=== PATIENT | female | born 1975 | race Caucasian/White ===

== ENCOUNTER 2016-10-27 20:36 | Inpatient (IN) | payer BC ==
[2016-10-27] MEDS ORDERED: HYDROmorphone 1 MG/ML Syringe IVPUSH ONE (21:34)
[2016-10-27] MEDS ORDERED: Ondansetron 4 MG/2 ML SDV IVPUSH ONE (21:34)
--- NOTE | 2016-10-27 21:41 | EDM.PDOC ---
ED HPI GI/ABDOMINAL - General Chief Complaint: Abdominal Pain Stated Complaint: ABDOMAINAL PAIN Time Seen by Provider: 10/27/16 21:36 Source of Information: Reports: Patient History Limitations: Reports: No limitations - History of Present Illness INITIAL COMMENTS - FREE TEXT/NARRATIVE: Patient presents for evaluation and treatment of epigastric abdominal pain. Patient reports that the pain began at 8 AM this morning. She states it has steadily worsened throughout the day. She states it feels like "contractions". States the pain is located in the epigastric area. reports associated symptoms of bloating, nausea, vomiting and diarrhea. She states that she has not vomited today but vomited yesterday and the day before. She states that she has had over 10 episodes of diarrhea today. She states that her last intake was a couple hours prior to her visit to the ER. States she tried to eat some rodriguez. She states she ate some rodriguez in hopes that it would help "clean her out ", as rodriguez does not sit well with her. she also had only about half Gatorade today. She states that she also tried Rolaids but did not find any symptom relief. She denies any fevers, cough, headaches or body aches. Patient says she's never had anything like this before. Past surgical history includes a tubal ligation and cholecystectomy. Location: other (epigastric) - Related Data Allergies/ADRs: Allergies Allergy/AdvReac Type Severity Reaction Status Date / Time Penicillins Allergy Tremors Verified 02/13/16 10:08 Home Meds: Home Meds atorvaSTATin [Lipitor] 40 mg PO DAILY 10/27/16 [History] Past Medical History - Past Health History Medical/Surgical History: Denies Medical/Surgical History Cardiovascular History: Reports: High cholesterol - Infectious Disease History Infectious Disease History: Reports: Chicken pox, Influenza - Past Surgical History GI Surgical History: Reports: Cholecystectomy Female Surgical History: Reports: Tubal ligation Social & Family History - Tobacco Use Smoking Status *Q: Never Smoker Second Hand Smoke Exposure: No - Caffeine Use Caffeine Use: Reports: Soda - Alcohol Use Days Per Week of Alcohol Use: 0 - Recreational Drug Use Recreational Drug Use: No - Living Situation & Occupation Occupation: employed ED ROS GENERAL - Review of Systems Review Of Systems: See Below Constitutional: Reports: other (denies body aches). Denies: fever Respiratory: Denies: Cough GI/Abdominal: Reports: Abdominal pain, Diarrhea, Distension, Nausea, Vomiting : Reports: no symptoms Neurological: Denies: Headache ED EXAM, GI/ABD - Physical Exam Exam: See Below Exam Limited By: No limitations General Appearance: alert, WD/WN, mild distress Respiratory/Chest: no respiratory distress, lungs clear, normal breath sounds Cardiovascular: normal peripheral pulses, regular rate, rhythm, no murmur GI/Abdominal: hypoactive bowel sounds, tenderness (epigastric), distention. No : rebound, Granados's sign Neurological: alert, oriented, normal cognition Psychiatric: normal affect, normal mood Skin Exam: Warm, Dry, Normal color Course - Vital Signs Last Recorded V/S: Last Vital Signs Temp 36.6 C 10/27/16 20:58 Pulse 97 10/27/16 20:58 Resp 20 10/27/16 20:58 BP 156/86 H 10/27/16 20:58 Pulse Ox 96 10/27/16 20:58 - Orders/Labs/Meds Orders: Active Orders 24 hr Category Date Time Status Patient Status [ADT] Routine ADT 10/27/16 23:42 Ordered Peripheral IV Care [RC] . DIRECTED Care 10/27/16 21:35 Active Nothing Per Oral Diet [DIET] Diet 10/27/16 Breakfast Ordered Abdomen Pelvis w Cont [CT] Stat Exams 10/27/16 21:34 Ordered CULTURE URINE [RM] Stat Lab 10/27/16 22:30 Ordered Sodium Chloride 0.9% [Normal Saline] 1,000 ml Med 10/27/16 23:24 Ordered IV ONETIME Sodium Chloride 0.9% [Saline Flush] Med 10/27/16 21:34 Active 10 ml FLUSH ASDIRECTED PRN NG [Nasogastric Orogastric Tube Insertion] [OM.PC] Oth 10/27/16 23:39 Ordered Routine Peripheral IV Insertion Adult [OM.PC] Routine Oth 10/27/16 21:34 Ordered Medication Orders Sodium Chloride (Normal Saline) 1,000 mls @ 999 mls/hr IV ONETIME ONE Stop: 10/28/16 00:24 Last Admin: 10/27/16 23:30 Dose: 999 mls/hr Sodium Chloride (Saline Flush) 10 ml FLUSH ASDIRECTED PRN PRN Reason: Keep Vein Open Last Admin: 10/27/16 22:55 Dose: 10 ml Admin: 10/27/16 21:49 Dose: 10 ml Labs: Laboratory Tests 10/27/16 10/27/16 10/27/16 Range/Units 21:37 21:37 21:37 WBC 8.30 (3.98-10.04) K/mm3 RBC 4.37 (3.98-5.22) M/mm3 Hgb 13.2 (11.2-15.7) gm/L Hct 39.0 (34.1-44.9) % MCV 89.2 (79.4-94.8) fl MCH 30.2 (25.6-32.2) pg MCHC 33.8 (32.2-35.5) g/dl RDW Std Deviation 39.9 (36.4-46.3) fL Plt Count 269 (182-369) K/mm3 MPV 11.0 (9.4-12.3) fl Neutrophils % (Manual) 70 H (40-60) % Band Neutrophils % 12 H (0-10) % Lymphocytes % (Manual) 14 L (20-40) % Atypical Lymphs % 0 % Monocytes % (Manual) 3 (2-10) % Eosinophils % (Manual) 1 (0.7-5.8) % Basophils % (Manual) 0 L (0.1-1.2) Platelet Estimate Adequate RBC Morph Comment Normal Sodium 142 (136-145) mEq/L Potassium 3.5 (3.5-5.1) mEq/L Chloride 104 (98-107) mEq/L Carbon Dioxide 26 (21-32) mEq/L Anion Gap 15.5 H (5-15) BUN 13 (7-18) mg/dL Creatinine 1.0 (0.55-1.02) mg/dL Est Cr Clr Drug Dosing 57.96 mL/min Estimated GFR (MDRD) > 60 (>60) mL/min BUN/Creatinine Ratio 13.0 L (14-18) Glucose 115 H (74-106) mg/dL Calcium 9.3 (8.5-10.1) mg/dL Total Bilirubin 1.6 H (0.2-1.0) mg/dL GGT 93 H (5-55) U/L AST 27 (15-37) U/L ALT 64 H (14-59) U/L Alkaline Phosphatase 93 (46-116) U/L C-Reactive Protein 1.9 H* (<1.0) mg/dL Total Protein 7.5 (6.4-8.2) g/dl Albumin 4.0 (3.4-5.0) g/dl Globulin 3.5 gm/dL Albumin/Globulin Ratio 1.1 (1-2) Lipase 103 (73-393) U/L Urine Color (Yellow) Urine Appearance (Clear) Urine pH (5.0-8.0) Ur Specific Salix (1.005-1.030) Urine Protein (Negative) Urine Glucose (UA) (Negative) Urine Ketones (Negative) Urine Occult Blood (Negative) Urine Nitrite (Negative) Urine Bilirubin (Negative) Urine Urobilinogen (0.2-1.0) Ur Leukocyte Esterase (Negative) Urine RBC (0-5) /hpf Urine WBC (0-5) /hpf Ur Epithelial Cells Ur Squamous Epith Cells (0-5) /hpf Urine Bacteria (FEW) /hpf Urine Mucus (FEW) /hpf Urine HCG, Qual (NEGATIVE) 10/27/16 10/27/16 Range/Units 21:45 21:45 WBC (3.98-10.04) K/mm3 RBC (3.98-5.22) M/mm3 Hgb (11.2-15.7) gm/L Hct (34.1-44.9) % MCV (79.4-94.8) fl MCH (25.6-32.2) pg MCHC (32.2-35.5) g/dl RDW Std Deviation (36.4-46.3) fL Plt Count (182-369) K/mm3 MPV (9.4-12.3) fl Neutrophils % (Manual) (40-60) % Band Neutrophils % (0-10) % Lymphocytes % (Manual) (20-40) % Atypical Lymphs % % Monocytes % (Manual) (2-10) % Eosinophils % (Manual) (0.7-5.8) % Basophils % (Manual) (0.1-1.2) Platelet Estimate RBC Morph Comment Sodium (136-145) mEq/L Potassium (3.5-5.1) mEq/L Chloride (98-107) mEq/L Carbon Dioxide (21-32) mEq/L Anion Gap (5-15) BUN (7-18) mg/dL Creatinine (0.55-1.02) mg/dL Est Cr Clr Drug Dosing mL/min Estimated GFR (MDRD) (>60) mL/min BUN/Creatinine Ratio (14-18) Glucose (74-106) mg/dL Calcium (8.5-10.1) mg/dL Total Bilirubin (0.2-1.0) mg/dL GGT (5-55) U/L AST (15-37) U/L ALT (14-59) U/L Alkaline Phosphatase (46-116) U/L C-Reactive Protein (<1.0) mg/dL Total Protein (6.4-8.2) g/dl Albumin (3.4-5.0) g/dl Globulin gm/dL Albumin/Globulin Ratio (1-2) Lipase (73-393) U/L Urine Color Yellow (Yellow) Urine Appearance Cloudy H (Clear) Urine pH 6.0 (5.0-8.0) Ur Specific Salix > or = 1.030 (1.005-1.030) Urine Protein 1+ H (Negative) Urine Glucose (UA) Negative (Negative) Urine Ketones Trace H (Negative) Urine Occult Blood 1+ H (Negative) Urine Nitrite Negative (Negative) Urine Bilirubin 1+ H (Negative) Urine Urobilinogen 1.0 (0.2-1.0) Ur Leukocyte Esterase Negative (Negative) Urine RBC 0-5 (0-5) /hpf Urine WBC 10-20 H (0-5) /hpf Ur Epithelial Cells Not Reportable Ur Squamous Epith Cells 30-40 H (0-5) /hpf Urine Bacteria Moderate H (FEW) /hpf Urine Mucus Many H (FEW) /hpf Urine HCG, Qual Negative (NEGATIVE) Meds: Medications Generic Name Dose Route Start Last Admin Trade Name Freq PRN Reason Stop Dose Admin Sodium Chloride 1,000 mls @ 999 mls/hr 10/27/16 23:24 10/27/16 23:30 Normal Saline IV 10/28/16 00:24 999 mls/hr ONETIME ONE Administration Sodium Chloride 10 ml 10/27/16 21:34 10/27/16 22:55 Saline Flush FLUSH 10 ml ASDIRECTED PRN Administration Keep Vein Open Discontinued Medications Generic Name Dose Route Start Last Admin Trade Name Freq PRN Reason Stop Dose Admin Diatrizoate Meglum/Diatrizoate Sod 120 ml 10/27/16 22:44 10/27/16 22:55 Gastrografin 37% PO 10/27/16 22:45 90 ml ONETIME ONE Administration Hydromorphone HCl 1 mg 10/27/16 21:34 10/27/16 21:49 Dilaudid IVPUSH 10/27/16 21:35 1 mg ONETIME ONE Administration Hydromorphone HCl 0.5 mg 10/27/16 23:32 10/27/16 23:41 Dilaudid IVPUSH 10/27/16 23:33 0.5 mg ONETIME ONE Administration Iopamidol 150 ml 10/27/16 22:44 10/27/16 22:55 Isovue-300 (61%) IVPUSH 10/27/16 22:45 125 ml ONETIME ONE Administration Ondansetron HCl 4 mg 10/27/16 21:34 10/27/16 21:47 Zofran IVPUSH 10/27/16 21:35 4 mg ONETIME ONE Administration - Radiology Interpretation Free Text/Narrative:: CT of the abdomen and pelvis with contrast impression per Vrad: Ileus or early evidence of small bowel obstruction possibly from adhesions in the mid ileal level. CT Results Date: 10/27/16 - Re-Assessments/Exams Free Text/Narrative Re-Assessment/Exam: 10/27/16 23:56 Patient reports pain is returning ordered 0.5mg IV dilaudid. Labs returned. WBC is 8.30, hgb is 13.2 and plts are 269 Sodium is 142, potassium is 3.5 and chloride is 104. Anion gap is 15.5. Glucose is 115 HCG is negative. UA is negative for leuks and nitries CRP is 1.9 lipase is 103 t. bilbi is 1.6, ast is 27 and alt is 64. ggt is [address] Elam, hospitalist [facility] consultant, regarding patient. He agreed to the admission. Asked we consult surgery [facility] consultant. Spoke with Dr. Ghulam Wilson, regarding the patient. Recommended NG tube and he will see the patient in the morning. Departure - Departure Time of Disposition: 00:02 Disposition: Admitted As Inpatient 65 Condition: poor Clinical Impression: Small bowel obstruction Forms: ED Department Discharge Additional Instructions: Patient admitted to med/surg. Dr. Elam accepting. - My Orders Last 24 Hours: My Active Orders 10/27/16 21:34 Abdomen Pelvis w Cont [CT] Stat Sodium Chloride 0.9% [Saline Flush] 10 ml FLUSH ASDIRECTED PRN Peripheral IV Insertion Adult [OM.PC] Routine 10/27/16 21:35 Peripheral IV Care [RC] . DIRECTED 10/27/16 22:30 CULTURE URINE [RM] Stat 10/27/16 23:24 Sodium Chloride 0.9% [Normal Saline] 1,000 ml IV ONETIME 10/27/16 23:39 NG [Nasogastric Orogastric Tube Insertion] [OM.PC] Routine 10/27/16 23:42 Patient Status [ADT] Routine 10/27/16 Breakfast Nothing Per Oral Diet [DIET] - Assessment/Plan Last 24 Hours: My Active Orders 10/27/16 21:34 Abdomen Pelvis w Cont [CT] Stat Sodium Chloride 0.9% [Saline Flush] 10 ml FLUSH ASDIRECTED PRN Peripheral IV Insertion Adult [OM.PC] Routine 10/27/16 21:35 Peripheral IV Care [RC] . DIRECTED 10/27/16 22:30 CULTURE URINE [RM] Stat 10/27/16 23:24 Sodium Chloride 0.9% [Normal Saline] 1,000 ml IV ONETIME 10/27/16 23:39 NG [Nasogastric Orogastric Tube Insertion] [OM.PC] Routine 10/27/16 23:42 Patient Status [ADT] Routine 10/27/16 Breakfast Nothing Per Oral Diet [DIET]
[2016-10-27] MEDS: Sodium Chloride 0.9% 10 ML Syringe FLUSH PRN ×2 (21:49→22:55)
[2016-10-27] MEDS ORDERED: Diatrizoate Meglumine/Diatrizoate Sodium 37% 120 ML Bottle PO ONE (22:44)
[2016-10-27] MEDS ORDERED: Iopamidol 612 MG/ML 150 ML Bottle IVPUSH ONE (22:44)
[2016-10-27] MEDS ORDERED: Sodium Chloride 0.9% 1,000 ML IV ONE (23:24)
[2016-10-27] MEDS ORDERED: HYDROmorphone 0.5 MG/0.5 ML Syringe IVPUSH ONE (23:32)
[2016-10-28] MEDS ORDERED: Ondansetron 4 MG/2 ML SDV IVPUSH PRN (00:40)
[2016-10-28] MEDS ORDERED: HYDROmorphone 0.5 MG/0.5 ML Syringe IVPUSH PRN (00:41)
[2016-10-28] MEDS ORDERED: Sodium Chloride 0.9% 1,000 ML IV SCH (00:45)
--- NOTE | 2016-10-28 06:51 | PCM.HP ---
H&P History of Present Illness - General Date of Service: 10/28/16 Admit Problem/Dx: Admission Diagnosis/Problem Admission Diagnosis/Problem Small bowel obstruction - History of Present Illness Initial Comments - Free Text/Narative: this is a pleasant 41-year-old female with a history of hypothyroidism, cholecystectomy, who presented to the ER with a few days history of worsening nausea and vomiting since Sunday. She is decreased appetite. The vomitus is nonbilious and nonbloody. She developed a pain yesterday which was worsening. She describes it as a constant pressure in the epigastric region, with intermittent cramping. she is status post cholecystectomy and has had tubal ligation, but denies any other surgeries, or history of SBO. currently she denies fevers, chills, night sweats. She does not report any other active complaints except for headache on review of systems. In the ER, CT of the abdomen preliminarily showed ileus versus early SBO. We are asked to evaluate her for admission, and general surgery Dr. Wilson was contacted over the phone. He stated he would see her this morning. Upper Abdomen Pain Score (Numeric/FACES): 4 - Related Data Allergies/Adverse Reactions: Allergies Allergy/AdvReac Type Severity Reaction Status Date / Time Penicillins Allergy Seizure Verified 10/28/16 06:50 Home Medications: Home Meds atorvaSTATin [Lipitor] 40 mg PO DAILY 10/27/16 [History] Past Medical History - Past Health History Medical/Surgical History: Denies Medical/Surgical History Cardiovascular History: Reports: High cholesterol - Infectious Disease History Infectious Disease History: Reports: Chicken pox, Influenza - Past Surgical History GI Surgical History: Reports: Cholecystectomy Female Surgical History: Reports: Tubal ligation Social & Family History - Family History Cardiac: Reports: [place] Endocrine/Metabolic: Reports: Diabetes, type II - Tobacco Use Smoking Status *Q: Never Smoker Second Hand Smoke Exposure: No - Caffeine Use Caffeine Use: Reports: Soda Other Caffeine Use: 1 soda/day - Alcohol Use Days Per Week of Alcohol Use: 0 - Recreational Drug Use Recreational Drug Use: No - Living Situation & Occupation Occupation: employed H&P Review of Systems - Review of Systems: Review Of Systems: See Below General: Reports: weakness (gemneralized). Denies: fever, chills, night sweats HEENT: Reports: headaches. Denies: vertigo Pulmonary: Denies: Shortness of Breath, Wheezing, Cough, Sputum Cardiovascular: Denies: chest pain, palpitations, orthopnea Gastrointestinal: Reports: Abdominal pain, Anorexia, Nausea, Vomiting. Denies: Hematemesis, Hematochezia Genitourinary: Denies: dysuria, frequency, burning, pain Musculoskeletal: Denies: neck pain, back pain Skin: Denies: rash, lesions, lumps Psychiatric: Denies: confusion, depression, anxiety Neurological: Reports: Headache, Weakness. Denies: Confusion, Dizziness, Numbness Hematologic/Lymphatic: Denies: easy bleeding, easy bruising Exam - Exam Exam: See Below - Vital Signs Vital Signs: Last Vital Signs Temp 37.6 C 10/28/16 04:41 Pulse 82 10/28/16 04:41 Resp 12 10/28/16 04:41 BP 126/76 10/28/16 04:41 Pulse Ox 95 10/28/16 04:41 Weight: 87.725 kg - Exam Physical Exam Comments:: Vitals: as above General: alert and oriented. appears ill, and somewhat uncomfortable Psych: calm and cooperative HEENT: normocephalic, atraumatic. EOMI Cardiac: Normal S1, S2. regular rate. No murmurs rubs, or gallops. No JVD noted. Lungs: CTAB. good air entry bilaterally. Abd: Soft, tenderness most prominent in the epigastric region, with involuntary guarding and mild rebound tenderness as well. No rigidity noted. decreased bowel sounds. Skin: no new visible rashes or purpura noted Neuro: CN grossly intact. Strength intact and adequate bilaterally. - Patient Data Result Diagrams: 10/27/16 21:37 10/27/16 21:37 Imaging Impressions last 24 hrs: CT of abdomen preliminarily showed ileus versus SBO per ER report. Awaiting formal results read. *Q Meaningful Use (ADM) - VTE *Q VTE Criteria *Q: - Stroke *Q Stroke Criteria *Q: - AMI *Q AMI Criteria *Q: - Problem List (1) Small bowel obstruction SNOMED Code(s): 574382435 ICD Code: K56.69 - OTHER INTESTINAL OBSTRUCTION Status: Acute Current Visit: Yes (2) Abdominal pain SNOMED Code(s): 47912441 ICD Code: R10.9 - UNSPECIFIED ABDOMINAL PAIN Status: Acute Current Visit : No Qualifiers: Abdominal location: epigastric Qualified Code(s): R10.13 - Epigastric pain (3) Diarrhea SNOMED Code(s): 61498895 ICD Code: R19.7 - DIARRHEA, UNSPECIFIED Status: Acute Current Visit: No Qualifiers: Diarrhea type: unspecified type Qualified Code(s): R19.7 - Diarrhea, unspecified Problem List Initiated/Reviewed/Updated: Yes Orders Last 24hrs: Active Orders 24 hr Category Date Time Status Admission Status [Patient Status] [ADT] Routine ADT 10/28/16 00:10 Active Activity as Tolerated [RC] QSHIFT Care 10/28/16 00:49 Active NG [Gastrointestinal Tube Mgmt] [RC] QID Care 10/28/16 00:42 Active Notify Provider Consults [RC] ASDIRECTED Care 10/28/16 02:28 Active Consult to Physician [CONS] Routine Cons 10/28/16 02:25 Active HYDROmorphone [Dilaudid] Med 10/28/16 00:41 Active 0.5 mg IVPUSH Q1H PRN Ondansetron [Zofran] Med 10/28/16 00:40 Active 4 mg IVPUSH Q6H PRN Sodium Chloride 0.9% [Normal Saline] 1,000 ml Med 10/28/16 00:45 Active IV ASDIRECTED Code Status [Resuscitation Status] Routine Resus Stat 10/28/16 00:47 Ordered Medication Orders Hydromorphone HCl (Dilaudid) 0.5 mg IVPUSH Q1H PRN PRN Reason: Pain (severe 7-10) Sodium Chloride (Normal Saline) 1,000 mls @ 100 mls/hr IV ASDIRECTED [facility] Last Admin: 10/28/16 01:03 Dose: 100 mls/hr Ondansetron HCl (Zofran) 4 mg IVPUSH Q6H PRN PRN Reason: Nausea/Vomiting Sodium Chloride (Saline Flush) 10 ml FLUSH ASDIRECTED PRN PRN Reason: Keep Vein Open Last Admin: 10/27/16 22:55 Dose: 10 ml Admin: 10/27/16 21:49 Dose: 10 ml Assessment/Plan Comment:: Abdominal pain pressure, nausea, vomiting. CT suspicious for ileus versus SBO. Patient has had NG tube placement. Will confirm placement with abdomen x-ray. NG tube to intermittent low suction. Patient reports some improvement with this. Will check stat labs to make sure she is not developing leukocytosis. She has some guarding in the epigastric region. Dr. Arceo to assess her this morning. Keep her n.p.o. IV fluids. Acute on chronic diarrhea. With some green stools. We will check stool cultures , and C. difficile. At this time empiric antibiotics are not indicated. Consider initiating cholestyramine on discharge for her chronic diarrhea. Hyperlipidemia -- we'll hold her statin for now while she is n.p.o. Patient is full code. DVT prophylaxis with subcutaneous Lovenox.
[2016-10-28] MEDS ORDERED: Acetaminophen 325 MG Tab PO PRN (07:09)
[2016-10-28] MEDS ORDERED: Bisacodyl 10 MG Supp RECTAL PRN (07:09)
[2016-10-28] MEDS ORDERED: hydrALAZINE 10 MG Tab PO PRN (07:09)
[2016-10-28] MEDS ORDERED: Bisacodyl 5 MG Tab PO PRN (07:09)
[2016-10-28] MEDS ORDERED: Docusate Sodium 100 MG Cap PO PRN (07:09)
[2016-10-28] MEDS: Enoxaparin 40 MG/0.4 ML Syringe SUBCUT SCH (08:26)
[2016-10-28] MEDS: Sodium Chloride 0.9% 1,000 ML IV SCH ×4 (08:32→22:00)
--- NOTE | 2016-10-28 10:27 | PCM.CONSN ---
- General Info Date of Service: 10/28/16 - Patient Data Vitals - most recent: Last Vital Signs Temp 99.7 F 10/28/16 04:41 Pulse 82 10/28/16 04:41 Resp 12 10/28/16 04:41 BP 126/76 10/28/16 04:41 Pulse Ox 95 10/28/16 04:41 Weight - most recent: 87.725 kg I&O - last 24 hours: Intake & Output 10/27/16 10/28/16 10/28/16 23:59 07:59 15:59 Intake Total 441 Output Total 590 Balance -149 Lab Results last 24 hrs: Laboratory Results - last 24 hr 10/28/16 10/28/16 10/28/16 Range/Units 07:20 07:20 07:20 WBC 3.68 L (3.98-10.04) K/mm3 RBC 3.99 (3.98-5.22) M/mm3 Hgb 12.0 (11.2-15.7) gm/L Hct 36.2 (34.1-44.9) % MCV 90.7 (79.4-94.8) fl MCH 30.1 (25.6-32.2) pg MCHC 33.1 (32.2-35.5) g/dl RDW Std Deviation 40.8 (36.4-46.3) fL Plt Count 245 (182-369) K/mm3 MPV 10.9 (9.4-12.3) fl Neut % (Auto) 61.9 (34.0-71.1) % Lymph % (Auto) 22.3 (19.3-51.7) % Barren % (Auto) 14.7 H (4.7-12.5) % Eos % (Auto) 0.8 (0.7-5.8) Baso % (Auto) 0.3 (0.1-1.2) % Neut # (Auto) 2.28 (1.56-6.13) K/mm3 Lymph # (Auto) 0.82 L (1.18-3.74) K/mm3 Barren # (Auto) 0.54 H (0.24-0.36) K/mm3 Eos # (Auto) 0.03 L (0.04-0.36) K/mm3 Baso # (Auto) 0.01 (0.01-0.08) K/mm3 Sodium 141 (136-145) mEq/L Potassium 4.0 (3.5-5.1) mEq/L Chloride 105 (98-107) mEq/L Carbon Dioxide 29 (21-32) mEq/L Anion Gap 11.0 (5-15) BUN 12 (7-18) mg/dL Creatinine 0.8 (0.55-1.02) mg/dL Est Cr Clr Drug Dosing 72.45 mL/min Estimated GFR (MDRD) > 60 (>60) mL/min BUN/Creatinine Ratio 15.0 (14-18) Glucose 113 H (74-106) mg/dL Calcium 8.2 L (8.5-10.1) mg/dL Magnesium 2.0 (1.8-2.4) mg/dl Total Bilirubin 1.7 H (0.2-1.0) mg/dL AST 428 H (15-37) U/L ALT 444 H (14-59) U/L Alkaline Phosphatase 165 H (46-116) U/L Total Protein 6.8 (6.4-8.2) g/dl Albumin 3.4 (3.4-5.0) g/dl Globulin 3.4 gm/dL Albumin/Globulin Ratio 1.0 (1-2) C.difficile 027-[id number] C. difficile Tox (PCR) 10/28/16 Range/Units 07:30 WBC (3.98-10.04) K/mm3 RBC (3.98-5.22) M/mm3 Hgb (11.2-15.7) gm/L Hct (34.1-44.9) % MCV (79.4-94.8) fl MCH (25.6-32.2) pg MCHC (32.2-35.5) g/dl RDW Std Deviation (36.4-46.3) fL Plt Count (182-369) K/mm3 MPV (9.4-12.3) fl Neut % (Auto) (34.0-71.1) % Lymph % (Auto) (19.3-51.7) % Barren % (Auto) (4.7-12.5) % Eos % (Auto) (0.7-5.8) Baso % (Auto) (0.1-1.2) % Neut # (Auto) (1.56-6.13) K/mm3 Lymph # (Auto) (1.18-3.74) K/mm3 Barren # (Auto) (0.24-0.36) K/mm3 Eos # (Auto) (0.04-0.36) K/mm3 Baso # (Auto) (0.01-0.08) K/mm3 Sodium (136-145) mEq/L Potassium (3.5-5.1) mEq/L Chloride (98-107) mEq/L Carbon Dioxide (21-32) mEq/L Anion Gap (5-15) BUN (7-18) mg/dL Creatinine (0.55-1.02) mg/dL Est Cr Clr Drug Dosing mL/min Estimated GFR (MDRD) (>60) mL/min BUN/Creatinine Ratio (14-18) Glucose (74-106) mg/dL Calcium (8.5-10.1) mg/dL Magnesium (1.8-2.4) mg/dl Total Bilirubin (0.2-1.0) mg/dL AST (15-37) U/L ALT (14-59) U/L Alkaline Phosphatase (46-116) U/L Total Protein (6.4-8.2) g/dl Albumin (3.4-5.0) g/dl Globulin gm/dL Albumin/Globulin Ratio (1-2) C.difficile [id number]-[id number] Presumptive negative C. difficile Tox (PCR) Negative Greg Results last 24 hrs: Microbiology 10/28/16 07:30 Stool for WBCs - Final Stool / Feces NO WBC SEEN Med Orders - Current: Current Medications Acetaminophen (Tylenol) 650 mg PO Q4H PRN PRN Reason: Pain (Mild 1-3)/fever Bisacodyl (Dulcolax) 5 mg PO DAILY PRN PRN Reason: Constipation Bisacodyl (Dulcolax) 10 mg RECTAL DAILY PRN PRN Reason: Constipation Docusate Sodium (Colace) 100 mg PO BID PRN PRN Reason: Constipation Enoxaparin Sodium (Lovenox) 40 mg SUBCUT DAILY [facility] Last Admin: 10/28/16 08:26 Dose: 40 mg Hydralazine HCl (Apresoline) 10 mg PO Q6H PRN PRN Reason: systolic BP>180 or diast>105 Hydromorphone HCl (Dilaudid) 0.5 mg IVPUSH Q1H PRN PRN Reason: Pain (severe 7-10) Sodium Chloride (Normal Saline) 1,000 mls @ 100 mls/hr IV ASDIRECTED [facility] Last Admin: 10/28/16 01:03 Dose: 100 mls/hr Sodium Chloride (Normal Saline) 1,000 mls @ 175 mls/hr IV ASDIRECTED [facility] Last Admin: 10/28/16 10:07 Dose: 175 mls/hr Ondansetron HCl (Zofran) 4 mg IVPUSH Q6H PRN PRN Reason: Nausea/Vomiting Last Admin: 10/28/16 06:51 Dose: 4 mg Sodium Chloride (Saline Flush) 10 ml FLUSH ASDIRECTED PRN PRN Reason: Keep Vein Open Last Admin: 10/27/16 22:55 Dose: 10 ml Discontinued Medications Diatrizoate Meglum/Diatrizoate Sod (Gastrografin 37%) 120 ml PO ONETIME ONE Stop: 10/27/16 22:45 Last Admin: 10/27/16 22:55 Dose: 90 ml Hydromorphone HCl (Dilaudid) 1 mg IVPUSH ONETIME ONE Stop: 10/27/16 21:35 Last Admin: 10/27/16 21:49 Dose: 1 mg Hydromorphone HCl (Dilaudid) 0.5 mg IVPUSH ONETIME ONE Stop: 10/27/16 23:33 Last Admin: 10/27/16 23:41 Dose: 0.5 mg Sodium Chloride (Normal Saline) 1,000 mls @ 999 mls/hr IV ONETIME ONE Stop: 10/28/16 00:24 Last Admin: 10/27/16 23:30 Dose: 999 mls/hr Iopamidol (Isovue-300 (61%)) 150 ml IVPUSH ONETIME ONE Stop: 10/27/16 22:45 Last Admin: 10/27/16 22:55 Dose: 125 ml Ondansetron HCl (Zofran) 4 mg IVPUSH ONETIME ONE Stop: 10/27/16 21:35 Last Admin: 10/27/16 21:47 Dose: 4 mg Consult PN Assessment/Plan Procedures: Procedures ASSAY GLUCOSE BLOOD QUANT (03/24/15) ASSAY OF LIPASE (06/06/15) ASSAY OF PROLACTIN (03/24/15) ASSAY OF TROPONIN QUANT (02/13/16) ASSAY THYROID STIM HORMONE (03/24/15) CHEST X-RAY 1 VIEW FRONTAL (02/13/16) CHYLMD TRACH DNA AMP PROBE (12/16/14) COMP SCREEN MAMMOGRAM ADD-ON (03/24/15) COMPLETE CBC W/AUTO DIFF WBC (02/13/16) COMPREHEN METABOLIC PANEL (02/13/16) ELECTROCARDIOGRAM TRACING (02/13/16) EMERGENCY DEPT VISIT (02/13/16) EMERGENCY DEPT VISIT (10/03/15) EMERGENCY DEPT VISIT (06/06/15) EMERGENCY DEPT VISIT (03/21/14) HYDRATE IV INFUSION ADD-ON (06/06/15) INSERT BLADDER CATHETER (06/06/15) LIPID PANEL (03/24/15) N.GONORRHOEAE DNA AMP PROB (12/16/14) ROUTINE VENIPUNCTURE (02/13/16) SMEAR WET [place] SALINE/INK (12/16/14) THER/PROPH/DIAG INJ IV PUSH (02/13/16) THER/PROPH/DIAG IV INF INIT (10/03/15) TRICHOMONAS ASSAY W/OPTIC (12/16/14) TX/PRO/DX INJ NEW DRUG ADDON (10/03/15) URINALYSIS AUTO W/SCOPE (06/06/15) US EXAM PELVIC COMPLETE (03/24/15) Problem List Initiated/Reviewed/Updated: Yes Plan: consult dictated GLENDY
--- NOTE | 2016-10-28 12:03 | PCM.PN ---
- General Info Date of Service: 10/28/16 Subjective Update: Discussed current plan of care, SBO unlikely. Will monitor NGT output and follow labs. Patient has been seen by Dr Wilson, general surgeon. Functional Status: Reports: other (NGT in situ) - Review of Systems General: Reports: No Symptoms HEENT: Reports: no symptoms Pulmonary: Reports: no symptoms Cardiovascular: Reports: No Symptoms Gastrointestinal: Reports: No symptoms Genitourinary: Reports: no symptoms Musculoskeletal: Reports: no symptoms Skin: Reports: no symptoms Neurological: Reports: No Symptoms Psychiatric: Reports: no symptoms - Patient Data Vitals - most recent: Last Vital Signs Temp 37.6 C 10/28/16 04:41 Pulse 82 10/28/16 04:41 Resp 12 10/28/16 04:41 BP 126/76 10/28/16 04:41 Pulse Ox 95 10/28/16 04:41 Weight - most recent: 87.725 kg I&O - last 24 hours: Intake & Output 10/27/16 10/28/16 10/28/16 22:59 06:59 14:59 Intake Total 441 Output Total 590 Balance -149 Lab Results last 24 hrs: Laboratory Results - last 24 hr 10/28/16 10/28/16 10/28/16 Range/Units 07:20 07:20 07:20 WBC 3.68 L (3.98-10.04) K/mm3 RBC 3.99 (3.98-5.22) M/mm3 Hgb 12.0 (11.2-15.7) gm/L Hct 36.2 (34.1-44.9) % MCV 90.7 (79.4-94.8) fl MCH 30.1 (25.6-32.2) pg MCHC 33.1 (32.2-35.5) g/dl RDW Std Deviation 40.8 (36.4-46.3) fL Plt Count 245 (182-369) K/mm3 MPV 10.9 (9.4-12.3) fl Neut % (Auto) 61.9 (34.0-71.1) % Lymph % (Auto) 22.3 (19.3-51.7) % [place] % (Auto) 14.7 H (4.7-12.5) % Eos % (Auto) 0.8 (0.7-5.8) Baso % (Auto) 0.3 (0.1-1.2) % Neut # (Auto) 2.28 (1.56-6.13) K/mm3 Lymph # (Auto) 0.82 L (1.18-3.74) K/mm3 [place] # (Auto) 0.54 H (0.24-0.36) K/mm3 Eos # (Auto) 0.03 L (0.04-0.36) K/mm3 Baso # (Auto) 0.01 (0.01-0.08) K/mm3 Sodium 141 (136-145) mEq/L Potassium 4.0 (3.5-5.1) mEq/L Chloride 105 (98-107) mEq/L Carbon Dioxide 29 (21-32) mEq/L Anion Gap 11.0 (5-15) BUN 12 (7-18) mg/dL Creatinine 0.8 (0.55-1.02) mg/dL Est Cr Clr Drug Dosing 72.45 mL/min Estimated GFR (MDRD) > 60 (>60) mL/min BUN/Creatinine Ratio 15.0 (14-18) Glucose 113 H (74-106) mg/dL Calcium 8.2 L (8.5-10.1) mg/dL Magnesium 2.0 (1.8-2.4) mg/dl Total Bilirubin 1.7 H (0.2-1.0) mg/dL AST 428 H (15-37) U/L ALT 444 H (14-59) U/L Alkaline Phosphatase 165 H (46-116) U/L Total Protein 6.8 (6.4-8.2) g/dl Albumin 3.4 (3.4-5.0) g/dl Globulin 3.4 gm/dL Albumin/Globulin Ratio 1.0 (1-2) C.difficile 027-[id number] C. difficile Tox (PCR) 10/28/16 Range/Units 07:30 WBC (3.98-10.04) K/mm3 RBC (3.98-5.22) M/mm3 Hgb (11.2-15.7) gm/L Hct (34.1-44.9) % MCV (79.4-94.8) fl MCH (25.6-32.2) pg MCHC (32.2-35.5) g/dl RDW Std Deviation (36.4-46.3) fL Plt Count (182-369) K/mm3 MPV (9.4-12.3) fl Neut % (Auto) (34.0-71.1) % Lymph % (Auto) (19.3-51.7) % [place] % (Auto) (4.7-12.5) % Eos % (Auto) (0.7-5.8) Baso % (Auto) (0.1-1.2) % Neut # (Auto) (1.56-6.13) K/mm3 Lymph # (Auto) (1.18-3.74) K/mm3 [place] # (Auto) (0.24-0.36) K/mm3 Eos # (Auto) (0.04-0.36) K/mm3 Baso # (Auto) (0.01-0.08) K/mm3 Sodium (136-145) mEq/L Potassium (3.5-5.1) mEq/L Chloride (98-107) mEq/L Carbon Dioxide (21-32) mEq/L Anion Gap (5-15) BUN (7-18) mg/dL Creatinine (0.55-1.02) mg/dL Est Cr Clr Drug Dosing mL/min Estimated GFR (MDRD) (>60) mL/min BUN/Creatinine Ratio (14-18) Glucose (74-106) mg/dL Calcium (8.5-10.1) mg/dL Magnesium (1.8-2.4) mg/dl Total Bilirubin (0.2-1.0) mg/dL AST (15-37) U/L ALT (14-59) U/L Alkaline Phosphatase (46-116) U/L Total Protein (6.4-8.2) g/dl Albumin (3.4-5.0) g/dl Globulin gm/dL Albumin/Globulin Ratio (1-2) C.difficile [id number] Presumptive negative C. difficile Tox (PCR) Negative Greg Results last 24 hrs: Microbiology 10/28/16 07:30 Stool for WBCs - Final Stool / Feces NO WBC SEEN Med Orders - Current: Current Medications Acetaminophen (Tylenol) 650 mg PO Q4H PRN PRN Reason: Pain (Mild 1-3)/fever Bisacodyl (Dulcolax) 5 mg PO DAILY PRN PRN Reason: Constipation Bisacodyl (Dulcolax) 10 mg RECTAL DAILY PRN PRN Reason: Constipation Docusate Sodium (Colace) 100 mg PO BID PRN PRN Reason: Constipation Enoxaparin Sodium (Lovenox) 40 mg SUBCUT DAILY [facility] Last Admin: 10/28/16 08:26 Dose: 40 mg Hydralazine HCl (Apresoline) 10 mg PO Q6H PRN PRN Reason: systolic BP>180 or diast>105 Hydromorphone HCl (Dilaudid) 0.5 mg IVPUSH Q1H PRN PRN Reason: Pain (severe 7-10) Sodium Chloride (Normal Saline) 1,000 mls @ 100 mls/hr IV ASDIRECTED [facility] Last Admin: 10/28/16 01:03 Dose: 100 mls/hr Sodium Chloride (Normal Saline) 1,000 mls @ 175 mls/hr IV ASDIRECTED [facility] Last Admin: 10/28/16 10:07 Dose: 175 mls/hr Ondansetron HCl (Zofran) 4 mg IVPUSH Q6H PRN PRN Reason: Nausea/Vomiting Last Admin: 10/28/16 06:51 Dose: 4 mg Sodium Chloride (Saline Flush) 10 ml FLUSH ASDIRECTED PRN PRN Reason: Keep Vein Open Last Admin: 10/27/16 22:55 Dose: 10 ml Discontinued Medications Diatrizoate Meglum/Diatrizoate Sod (Gastrografin 37%) 120 ml PO ONETIME ONE Stop: 10/27/16 22:45 Last Admin: 10/27/16 22:55 Dose: 90 ml Hydromorphone HCl (Dilaudid) 1 mg IVPUSH ONETIME ONE Stop: 10/27/16 21:35 Last Admin: 10/27/16 21:49 Dose: 1 mg Hydromorphone HCl (Dilaudid) 0.5 mg IVPUSH ONETIME ONE Stop: 10/27/16 23:33 Last Admin: 10/27/16 23:41 Dose: 0.5 mg Sodium Chloride (Normal Saline) 1,000 mls @ 999 mls/hr IV ONETIME ONE Stop: 10/28/16 00:24 Last Admin: 10/27/16 23:30 Dose: 999 mls/hr Iopamidol (Isovue-300 (61%)) 150 ml IVPUSH ONETIME ONE Stop: 10/27/16 22:45 Last Admin: 10/27/16 22:55 Dose: 125 ml Ondansetron HCl (Zofran) 4 mg IVPUSH ONETIME ONE Stop: 10/27/16 21:35 Last Admin: 10/27/16 21:47 Dose: 4 mg - Exam Quality Assessment: DVT prophylaxis General: alert, oriented, cooperative, no acute distress HEENT: Pupils equal, Pupils reactive Neck: supple, trachea midline Lungs: Normal respiratory effort Cardiovascular: Regular Rate, Regular Rhythm Abdomen: bowel sounds present, soft, no tenderness, no distension (Female) Exam: Deferred Back Exam: normal inspection Extremities: normal pulses Skin: warm Neurological: no new focal deficit, normal speech Psy/Mental Status: alert, normal affect, normal mood - Problem List Review Problem List Initiated/Reviewed/Updated: Yes - Plan Plan:: Abdominal pain pressure, nausea, vomiting. CT suspicious for ileus versus SBO. Patient has had NG tube placement. Will confirm placement with abdomen x-ray. NG tube to intermittent low suction. Patient reports some improvement with this. Will check stat labs to make sure she is not developing leukocytosis. She has some guarding in the epigastric region. Dr. Arceo to assess her this morning. Keep her n.p.o. IV fluids. Rest bowel, reassess NGT, will likely stop today pending output; has been seen by Dr Wilson. Acute on chronic diarrhea. With some green stools. We will check stool cultures , and C. difficile. At this time empiric antibiotics are not indicated. Consider initiating cholestyramine on discharge for her chronic diarrhea. Negative results of stool studies. Hyperlipidemia. Resume statin as appropriate LFTs are elevated Patient is full code. DVT prophylaxis with subcutaneous Lovenox. DC 24-48 hours as dietary changes are tolerated after NGT DCd.
[2016-10-29] MEDS: Sodium Chloride 0.9% 1,000 ML IV SCH ×2 (03:44→09:07)
[2016-10-29] MEDS: Enoxaparin 40 MG/0.4 ML Syringe SUBCUT SCH (09:07)
--- NOTE | 2016-10-29 09:19 | PCM.PN ---
- General Info Date of Service: 10/29/16 Subjective Update: Tolerating diet, clear liquids; will advance to full liquids before regular diet today if tolerated. Functional Status: Reports: tolerating diet, ambulating, urinating - Review of Systems General: Reports: No Symptoms HEENT: Reports: no symptoms Pulmonary: Reports: no symptoms Cardiovascular: Reports: No Symptoms Gastrointestinal: Reports: No symptoms Genitourinary: Reports: no symptoms Musculoskeletal: Reports: no symptoms Skin: Reports: no symptoms Neurological: Reports: No Symptoms Psychiatric: Reports: no symptoms - Patient Data Vitals - most recent: Last Vital Signs Temp 36.6 C 10/29/16 09:10 Pulse 79 10/29/16 09:10 Resp 18 10/29/16 09:10 BP 124/87 10/29/16 09:10 Pulse Ox 96 10/29/16 09:10 Weight - most recent: 88.178 kg I&O - last 24 hours: Intake & Output 10/28/16 10/29/16 10/29/16 22:59 06:59 14:59 Intake Total 1108 462 Output Total 675 700 Balance 433 -238 Lab Results last 24 hrs: Laboratory Results - last 24 hr 10/29/16 10/29/16 Range/Units 06:30 06:30 Sodium 141 (136-145) mEq/L Potassium 3.5 (3.5-5.1) mEq/L Chloride 107 (98-107) mEq/L Carbon Dioxide 24 (21-32) mEq/L Anion Gap 13.5 (5-15) BUN 7 (7-18) mg/dL Creatinine 0.8 (0.55-1.02) mg/dL Est Cr Clr Drug Dosing 72.45 mL/min Estimated GFR (MDRD) > 60 (>60) mL/min BUN/Creatinine Ratio 8.8 L (14-18) Glucose 89 (74-106) mg/dL Calcium 7.8 L (8.5-10.1) mg/dL Magnesium 1.9 (1.8-2.4) mg/dl Total Bilirubin 1.7 H (0.2-1.0) mg/dL AST 88 H (15-37) U/L ALT 241 H (14-59) U/L Alkaline Phosphatase 125 H (46-116) U/L Total Protein 6.1 L (6.4-8.2) g/dl Albumin 3.1 L (3.4-5.0) g/dl Globulin 3.0 gm/dL Albumin/Globulin Ratio 1.0 (1-2) Greg Results last 24 hrs: Microbiology 10/28/16 07:30 Stool for WBCs - Final Stool / Feces NO WBC SEEN Med Orders - Current: Current Medications Acetaminophen (Tylenol) 650 mg PO Q4H PRN PRN Reason: Pain (Mild 1-3)/fever Bisacodyl (Dulcolax) 5 mg PO DAILY PRN PRN Reason: Constipation Bisacodyl (Dulcolax) 10 mg RECTAL DAILY PRN PRN Reason: Constipation Docusate Sodium (Colace) 100 mg PO BID PRN PRN Reason: Constipation Enoxaparin Sodium (Lovenox) 40 mg SUBCUT DAILY [facility] Last Admin: 10/29/16 09:07 Dose: 40 mg Hydralazine HCl (Apresoline) 10 mg PO Q6H PRN PRN Reason: systolic BP>180 or diast>105 Hydromorphone HCl (Dilaudid) 0.5 mg IVPUSH Q1H PRN PRN Reason: Pain (severe 7-10) Sodium Chloride (Normal Saline) 1,000 mls @ 175 mls/hr IV ASDIRECTED [facility] Last Admin: 10/29/16 09:07 Dose: 175 mls/hr Ondansetron HCl (Zofran) 4 mg IVPUSH Q6H PRN PRN Reason: Nausea/Vomiting Last Admin: 10/28/16 06:51 Dose: 4 mg Sodium Chloride (Saline Flush) 10 ml FLUSH ASDIRECTED PRN PRN Reason: Keep Vein Open Last Admin: 10/27/16 22:55 Dose: 10 ml Discontinued Medications Diatrizoate Meglum/Diatrizoate Sod (Gastrografin 37%) 120 ml PO ONETIME ONE Stop: 10/27/16 22:45 Last Admin: 10/27/16 22:55 Dose: 90 ml Hydromorphone HCl (Dilaudid) 1 mg IVPUSH ONETIME ONE Stop: 10/27/16 21:35 Last Admin: 10/27/16 21:49 Dose: 1 mg Hydromorphone HCl (Dilaudid) 0.5 mg IVPUSH ONETIME ONE Stop: 10/27/16 23:33 Last Admin: 10/27/16 23:41 Dose: 0.5 mg Sodium Chloride (Normal Saline) 1,000 mls @ 999 mls/hr IV ONETIME ONE Stop: 10/28/16 00:24 Last Admin: 10/27/16 23:30 Dose: 999 mls/hr Sodium Chloride (Normal Saline) 1,000 mls @ 100 mls/hr IV ASDIRECTED [facility] Last Admin: 10/28/16 01:03 Dose: 100 mls/hr Iopamidol (Isovue-300 (61%)) 150 ml IVPUSH ONETIME ONE Stop: 10/27/16 22:45 Last Admin: 10/27/16 22:55 Dose: 125 ml Ondansetron HCl (Zofran) 4 mg IVPUSH ONETIME ONE Stop: 10/27/16 21:35 Last Admin: 10/27/16 21:47 Dose: 4 mg - Exam Quality Assessment: DVT prophylaxis General: alert, oriented, cooperative, no acute distress HEENT: Pupils equal, Pupils reactive, EOMI Neck: supple, trachea midline Lungs: Normal respiratory effort Cardiovascular: Regular Rate, Regular Rhythm Abdomen: bowel sounds present, soft, no tenderness, no distension (Female) Exam: Deferred Back Exam: normal inspection Extremities: normal pulses Skin: warm Neurological: no new focal deficit, normal gait, normal speech Psy/Mental Status: alert, normal affect, normal mood - Problem List Review Problem List Initiated/Reviewed/Updated: Yes - My Orders Last 24 Hours: My Active Orders 10/30/16 05:00 CMP [COMPREHENSIVE METABOLIC PN,CMP] [CHEM] DAILY 10/31/16 05:00 CMP [COMPREHENSIVE METABOLIC PN,CMP] [CHEM] DAILY - Plan Plan:: Gastroenteritis; abdominal pain has resolved; NGT pulled 10/28/16. Tolerated clear liquids; Gen surg input appreciated Stop IVF. Acute on chronic diarrhea--Consider initiating cholestyramine on discharge for her chronic diarrhea. Negative results of stool studies. Hyperlipidemia--Resume statin as appropriate LFTs are elevated DC 24-48 hours Patient is full code. DVT prophylaxis with subcutaneous Lovenox.
--- NOTE | 2016-10-29 16:19 | CR ---
Chest: Portable view of the chest was obtained. Comparison: Previous chest x-ray of 02/13/16 is available. Heart size and mediastinum are within normal limits for portable technique. Lungs are clear. Nasogastric tube is seen with tip lying within the proximal stomach. Surgical clips are seen from prior cholecystectomy. Bony structures are grossly intact. Impression: 1. Tip of nasogastric tube within the proximal stomach. 2. Nothing acute is identified on portable chest x-ray. Diagnostic code #2 Agree with preliminary report issued by [employer] (preliminary [facility] report dictated on 10/28/16, 8:46 AM Central Time)
--- NOTE | 2016-10-29 19:20 | CT ---
CT abdomen and pelvis Technique: Multiple axial sections were obtained from above the dome of diaphragm inferiorly through the pubic symphysis. Intravenous and oral contrast was utilized. Delayed images were also obtained through the bladder. Comparison: Previous abdominal and pelvic CT study of 07/05/11 is available. Findings: Visualized lung bases show minimal atelectasis. Liver shows no focal parenchymal abnormality. Contrast seen within the distal esophagus compatible with reflux. Adrenal glands show no nodule. Small low density finding noted within the left kidney. This is stable from prior CT exam and likely represents minimal cyst. Small soft tissue nodule noted off the medial spleen compatible with accessory splenic tissue. Pancreas appears within normal limits. Aorta shows no aneurysmal dilatation. No retroperitoneal adenopathy or mesenteric abnormalities are seen. No pelvic mass or adenopathy is noted. Slightly prominent size of jejunal loops are seen with air-fluid levels. More distal ileal loops are decompressed. Exact transition point is not visualized. Appendix not visualized. No free fluid or inflammatory change is seen. Mesenteric lymph nodes are seen felt to be within normal limits. Bone window settings were reviewed which show mild scattered degenerative endplate spurring within the spine. Delayed images show contrast within the ureters and bladder. Impression: 1. Mildly dilated jejunal loops with differential including asymmetric ileus versus partial small bowel obstruction. 2. Other incidental findings as described above. Diagnostic code #3 Agree with preliminary report issued by [employer] (preliminary [facility] report dictated on 10/28/16, 12:15 AM Central Time)
[2016-10-30 08:15] VITALS: BP 123/86
--- NOTE | 2016-10-30 08:36 | PCM.DCSUM1 ---
<Nancy Howell M - Last Filed: 10/30/16 09:10> Discharge Summary - Hospital Course Free Text/Narrative:: this is a pleasant 41-year-old female with a history of hypothyroidism, cholecystectomy, who presented to the ER with a few days history of worsening nausea and vomiting since Sunday. She is decreased appetite. The vomitus is nonbilious and nonbloody. She developed a pain yesterday which was worsening. She describes it as a constant pressure in the epigastric region, with intermittent cramping. she is status post cholecystectomy and has had tubal ligation, but denies any other surgeries, or history of SBO. currently she denies fevers, chills, night sweats. She does not report any other active complaints except for headache on review of systems. In the ER, CT of the abdomen preliminarily showed ileus versus early SBO, transaminitis. We are asked to evaluate her for admission, and general surgery Dr. Wilson was contacted over the phone. He stated he would see her this morning. Patient was admitted, NG tube was placed, IV fluids for hydration. Stool studies obtained. Negative for shiga tox, c-diff, negative for WBC. H.Pylori negative. UC is also negative. 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 Diet was advanced, tolerated well. She is ambulating, minimal to no abd pain, no n/v/d. LFT's were elevated upon admission, improved by discharge but still slight elevation with bilirubin of 1.2 and AST of 161. She will be discharged home today with bland, soft diet to advance as tolerated. She is to follow up with her PCP within 5-7 days for recheck, sooner if needed with labs prior, CBC and CMP. - Discharge Data Discharge Date: 10/30/16 (10/28/15) Discharge Disposition: Home, Self-Care 01 Condition: Good - Discharge Diagnosis/Problem(s) (1) Gastroenteritis SNOMED Code(s): 68606987 ICD Code: K52.9 - NONINFECTIVE GASTROENTERITIS AND COLITIS, UNSPECIFIED Status: Acute Priority: High (2) Transaminitis SNOMED Code(s): 408911726 ICD Code: R74.0 - NONSPEC ELEV OF LEVELS OF TRANSAMNS & LACTIC ACID DEHYDRGNSE Status: Acute Priority: High (3) Abdominal pain SNOMED Code(s): 96875609 ICD Code: R10.9 - UNSPECIFIED ABDOMINAL PAIN Status: Acute Priority: High Qualifiers: Abdominal location: epigastric Qualified Code(s): R10.13 - Epigastric pain - Patient Summary/Data Operative Procedure(s) Performed: None Complications: None Consults: Consultations 10/28/16 07:07 Consult to Physician [CONS] Routine - Dr. Wilson, General Surgeon Labs Pending at D/C: None Recommended Follow-up Testing/Procedures: Follow up with PCP within 5-7 days for recheck Planned Operative Procedure(s) after DC: None Hospital Course: As above - Patient Instructions Diet: GI Soft/Low Residue/Low Fiber Activity: As Tolerated Driving: May Drive Today Showering/Bathing: May Shower Notify Provider of: Fever, Increased Pain, Nausea and/or Vomiting - Discharge Plan Home Medications: Home Meds atorvaSTATin [Lipitor] 40 mg PO DAILY 10/27/16 [History] Patient Handouts: Viral Gastroenteritis, Adult, [id number], Liver Function Tests, Ileus Forms: ED Department Discharge Referrals: Summer Rai PA-C [Primary Care Provider] - 11/06/16 10:45 am (Please follow up with Summer Rai on at 1045.) - Discharge Summary/Plan Comment DC Time >30 min.: Yes (40 min) - General Info Date of Service: 10/30/16 Admission Dx/Problem (Free Text: Admission Diagnosis/Problem Admission Diagnosis/Problem Gastroenteritis Functional Status: Reports: pain controlled, tolerating diet, ambulating, urinating. Denies: new symptoms - Review of Systems General: Reports: No Symptoms HEENT: Reports: no symptoms Pulmonary: Reports: no symptoms Cardiovascular: Reports: No Symptoms Gastrointestinal: Reports: No symptoms. Denies: Abdominal pain, Nausea, Vomiting Genitourinary: Reports: no symptoms Musculoskeletal: Reports: no symptoms Skin: Reports: no symptoms Neurological: Reports: No Symptoms Psychiatric: Reports: no symptoms - Patient Data Vitals - Most Recent: Last Vital Signs Temp 97.9 F 10/30/16 08:05 Pulse 72 10/30/16 08:05 Resp 14 10/30/16 08:05 BP 123/86 10/30/16 08:05 Pulse Ox 98 04/10/17 08:05 Weight - Most Recent: 86.455 kg I&O - Last 24 hours: Intake & Output 10/29/16 10/30/16 10/30/16 22:59 06:59 14:59 Intake Total 2957 500 Output Total 4429 7503 Balance 607 -1415 Lab Results - Last 24 hrs: Laboratory Results - last 24 hr 10/30/16 10/30/16 Range/Units 06:26 06:26 WBC 5.50 (3.98-10.04) K/mm3 RBC 3.95 L (3.98-5.22) M/mm3 Hgb 12.0 (11.2-15.7) gm/L Hct 35.0 (34.1-44.9) % MCV 88.6 (79.4-94.8) fl MCH 30.4 (25.6-32.2) pg MCHC 34.3 (32.2-35.5) g/dl RDW Std Deviation 38.2 (36.4-46.3) fL Plt Count 255 (182-369) K/mm3 MPV 10.8 (9.4-12.3) fl Sodium 140 (136-145) mEq/L Potassium 3.5 (3.5-5.1) mEq/L Chloride 106 (98-107) mEq/L Carbon Dioxide 24 (21-32) mEq/L Anion Gap 13.5 (5-15) BUN 6 L (7-18) mg/dL Creatinine 0.8 (0.55-1.02) mg/dL Est Cr Clr Drug Dosing 72.45 mL/min Estimated GFR (MDRD) > 60 (>60) mL/min BUN/Creatinine Ratio 7.5 L (14-18) Glucose 114 H (74-106) mg/dL Calcium 8.5 (8.5-10.1) mg/dL Total Bilirubin 1.2 H (0.2-1.0) mg/dL AST 36 (15-37) U/L ALT 161 H (14-59) U/L Alkaline Phosphatase 113 (46-116) U/L Total Protein 6.6 (6.4-8.2) g/dl Albumin 3.4 (3.4-5.0) g/dl Globulin 3.2 gm/dL Albumin/Globulin Ratio 1.1 (1-2) MERY Results - Last 24 hrs: Microbiology 10/28/16 07:30 - Final Stool / Feces NEGATIVE FOR SHIGA TOXIN 1 - Final NEGATIVE FOR SHIGA TOXIN 2 Med Orders - Current: Current Medications Acetaminophen (Tylenol) 650 mg PO Q4H PRN PRN Reason: Pain (Mild 1-3)/fever Bisacodyl (Dulcolax) 5 mg PO DAILY PRN PRN Reason: Constipation Bisacodyl (Dulcolax) 10 mg RECTAL DAILY PRN PRN Reason: Constipation Docusate Sodium (Colace) 100 mg PO BID PRN PRN Reason: Constipation Enoxaparin Sodium (Lovenox) 40 mg SUBCUT DAILY SAM Last Admin: 10/29/16 09:07 Dose: 40 mg Hydralazine HCl (Apresoline) 10 mg PO Q6H PRN PRN Reason: systolic BP>180 or diast>105 Hydromorphone HCl (Dilaudid) 0.5 mg IVPUSH Q1H PRN PRN Reason: Pain (severe 7-10) Ondansetron HCl (Zofran) 4 mg IVPUSH Q6H PRN PRN Reason: Nausea/Vomiting Last Admin: 10/28/16 06:51 Dose: 4 mg Sodium Chloride (Saline Flush) 10 ml FLUSH ASDIRECTED PRN PRN Reason: Keep Vein Open Last Admin: 10/27/16 22:55 Dose: 10 ml Discontinued Medications Diatrizoate Meglum/Diatrizoate Sod (Gastrografin 37%) 120 ml PO ONETIME ONE Stop: 10/27/16 22:45 Last Admin: 10/27/16 22:55 Dose: 90 ml Hydromorphone HCl (Dilaudid) 1 mg IVPUSH ONETIME ONE Stop: 10/27/16 21:35 Last Admin: 10/27/16 21:49 Dose: 1 mg Hydromorphone HCl (Dilaudid) 0.5 mg IVPUSH ONETIME ONE Stop: 10/27/16 23:33 Last Admin: 10/27/16 23:41 Dose: 0.5 mg Sodium Chloride (Normal Saline) 1,000 mls @ 999 mls/hr IV ONETIME ONE Stop: 10/28/16 00:24 Last Admin: 10/27/16 23:30 Dose: 999 mls/hr Sodium Chloride (Normal Saline) 1,000 mls @ 100 mls/hr IV ASDIRECTED [facility] Last Admin: 10/28/16 01:03 Dose: 100 mls/hr Sodium Chloride (Normal Saline) 1,000 mls @ 175 mls/hr IV ASDIRECTED [facility] Last Admin: 10/29/16 09:07 Dose: 175 mls/hr Iopamidol (Isovue-300 (61%)) 150 ml IVPUSH ONETIME ONE Stop: 10/27/16 22:45 Last Admin: 10/27/16 22:55 Dose: 125 ml Ondansetron HCl (Zofran) 4 mg IVPUSH ONETIME ONE Stop: 10/27/16 21:35 Last Admin: 10/27/16 21:47 Dose: 4 mg - Exam Quality Assessment: Reports: DVT prophylaxis General: Reports: alert, oriented, cooperative, no acute distress HEENT: Reports: Pupils equal, Pupils reactive, EOMI, Mucous membr. moist/pink Neck: Reports: supple Lungs: Reports: Clear to auscultation, Normal respiratory effort Cardiovascular: Reports: Regular Rate, Regular Rhythm Abdomen: Reports: bowel sounds present, soft, no tenderness, no distension (Female) Exam: Deferred Rectal (Female) Exam: Deferred Back Exam: Reports: normal inspection Extremities: Reports: no edema, no calf tenderness Skin: Reports: warm, dry, intact Neurological: Reports: no new focal deficit Psy/Mental Status: Reports: alert, normal affect, normal mood *Q Meaningful Use (DIS) - VTE *Q VTE Criteria *Q: - Stroke *Q Stroke Criteria *Q: - AMI *Q AMI Criteria *Q: <Sarahi Junior - Last Filed: 10/30/16 18:50> Discharge Summary - Hospital Course Free Text/Narrative:: Reassessment of LFTs are needed as an outpatient; may need Questran for lipid agent if not able to tolerate statin - Patient Summary/Data Consults: Consultations 10/28/16 07:07 Consult to Physician [CONS] Routine - Patient Data Vitals - Most Recent: Last Vital Signs Temp 36.6 C 10/30/16 08:05 Pulse 72 10/30/16 08:05 Resp 14 10/30/16 08:05 BP 123/86 10/30/16 08:05 Pulse Ox 98 10/30/16 08:05 I&O - Last 24 hours: Intake & Output 10/30/16 10/30/16 10/30/16 06:59 14:59 22:59 Intake Total 500 300 Output Total 1915 700 Balance -1415 -400 Lab Results - Last 24 hrs: Laboratory Results - last 24 hr 10/30/16 10/30/16 10/30/16 Range/Units 06:26 06:26 06:26 WBC 5.50 (3.98-10.04) K/mm3 RBC 3.95 L (3.98-5.22) M/mm3 Hgb 12.0 (11.2-15.7) gm/L Hct 35.0 (34.1-44.9) % MCV 88.6 (79.4-94.8) fl MCH 30.4 (25.6-32.2) pg MCHC 34.3 (32.2-35.5) g/dl RDW Std Deviation 38.2 (36.4-46.3) fL Plt Count 255 (182-369) K/mm3 MPV 10.8 (9.4-12.3) fl Sodium 140 (136-145) mEq/L Potassium 3.5 (3.5-5.1) mEq/L Chloride 106 (98-107) mEq/L Carbon Dioxide 24 (21-32) mEq/L Anion Gap 13.5 (5-15) BUN 6 L (7-18) mg/dL Creatinine 0.8 (0.55-1.02) mg/dL Est Cr Clr Drug Dosing 72.45 mL/min Estimated GFR (MDRD) > 60 (>60) mL/min BUN/Creatinine Ratio 7.5 L (14-18) Glucose 114 H (74-106) mg/dL Calcium 8.5 (8.5-10.1) mg/dL Total Bilirubin 1.2 H (0.2-1.0) mg/dL AST 36 (15-37) U/L ALT 161 H (14-59) U/L Alkaline Phosphatase 113 (46-116) U/L Total Protein 6.6 (6.4-8.2) g/dl Albumin 3.4 (3.4-5.0) g/dl Globulin 3.2 gm/dL Albumin/Globulin Ratio 1.1 (1-2) H. pylori IgG Antibody Negative (NEGATIVE) MERY Results - Last 24 hrs: Microbiology 10/28/16 07:30 Stool Culture - Preliminary Stool / Feces NORMAL ENTERIC ECHO 2 DAYS - Final NEGATIVE FOR SHIGA TOXIN 1 - Final NEGATIVE FOR SHIGA TOXIN 2 Med Orders - Current: Current Medications Discontinued Medications Acetaminophen (Tylenol) 650 mg PO Q4H PRN PRN Reason: Pain (Mild 1-3)/fever Bisacodyl (Dulcolax) 5 mg PO DAILY PRN PRN Reason: Constipation Bisacodyl (Dulcolax) 10 mg RECTAL DAILY PRN PRN Reason: Constipation Diatrizoate Meglum/Diatrizoate Sod (Gastrografin 37%) 120 ml PO ONETIME ONE Stop: 10/27/16 22:45 Last Admin: 10/27/16 22:55 Dose: 90 ml Docusate Sodium (Colace) 100 mg PO BID PRN PRN Reason: Constipation Enoxaparin Sodium (Lovenox) 40 mg SUBCUT DAILY [facility] Last Admin: 10/30/16 08:45 Dose: 40 mg Hydralazine HCl (Apresoline) 10 mg PO Q6H PRN PRN Reason: systolic BP>180 or diast>105 Hydromorphone HCl (Dilaudid) 1 mg IVPUSH ONETIME ONE Stop: 10/27/16 21:35 Last Admin: 10/27/16 21:49 Dose: 1 mg Hydromorphone HCl (Dilaudid) 0.5 mg IVPUSH ONETIME ONE Stop: 10/27/16 23:33 Last Admin: 10/27/16 23:41 Dose: 0.5 mg Hydromorphone HCl (Dilaudid) 0.5 mg IVPUSH Q1H PRN PRN Reason: Pain (severe 7-10) Sodium Chloride (Normal Saline) 1,000 mls @ 999 mls/hr IV ONETIME ONE Stop: 10/28/16 00:24 Last Admin: 10/27/16 23:30 Dose: 999 mls/hr Sodium Chloride (Normal Saline) 1,000 mls @ 100 mls/hr IV ASDIRECTED [facility] Last Admin: 10/28/16 01:03 Dose: 100 mls/hr Sodium Chloride (Normal Saline) 1,000 mls @ 175 mls/hr IV ASDIRECTED [facility] Last Admin: 10/29/16 09:07 Dose: 175 mls/hr Iopamidol (Isovue-300 (61%)) 150 ml IVPUSH ONETIME ONE Stop: 10/27/16 22:45 Last Admin: 10/27/16 22:55 Dose: 125 ml Ondansetron HCl (Zofran) 4 mg IVPUSH ONETIME ONE Stop: 10/27/16 21:35 Last Admin: 10/27/16 21:47 Dose: 4 mg Ondansetron HCl (Zofran) 4 mg IVPUSH Q6H PRN PRN Reason: Nausea/Vomiting Last Admin: 10/28/16 06:51 Dose: 4 mg Sodium Chloride (Saline Flush) 10 ml FLUSH ASDIRECTED PRN PRN Reason: Keep Vein Open Last Admin: 10/27/16 22:55 Dose: 10 ml *Q Meaningful Use (DIS) - VTE *Q VTE Criteria *Q: - Stroke *Q Stroke Criteria *Q: - AMI *Q AMI Criteria *Q:
[2016-10-30] MEDS: Enoxaparin 40 MG/0.4 ML Syringe SUBCUT SCH (08:45)
--- NOTE | 2016-10-30 11:02 | CONS ---
CONSULTING PHYSICIAN: Ghulam Wilson MD DATE OF CONSULTATION: 10/28/2016 HISTORY OF PRESENT ILLNESS: This is 41-year-old female, who since Sunday has had been having crampy abdominal pain, nausea, vomiting, and some diarrhea. This has been now progressive and came into the emergency room with abdominal epigastric pain, cramps, intermittent periumbilical area, and abdominal distention. A CT scan was done showing possible small bowel obstruction versus ileus. She has had a cholecystectomy and tubal ligation. Otherwise, denies any surgery. He has not had this problem before. 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 Since came in through the emergency room, C diff was obtained and was negative. The patient states with the NG tube was placed and about 500 mL was obtained without somewhat clear and no fecal look to it, this has decreased, and her cramps have improved. MEDICATIONS: Reviewed. REVIEW OF SYSTEMS: No chest pain, shortness of breath, cough, hoarseness, or wheezing, fainting weakness, numbness, convulsions. Did have nausea and vomiting. SOCIAL HISTORY: Works at daycare. FAMILY HISTORY: Reports diabetes type 2. Never smoked and no alcohol use or recreational drugs. PAST MEDICAL HISTORY: Good health. PHYSICAL EXAMINATION: GENERAL: Shows alert, cooperative female. VITAL SIGNS: Show a temperature 37, pulse is 82, respirations 12, blood pressure 126/76. HEENT: Eyes, sclerae white. Extraocular muscle motion normal. Oral cavity, healthy mucous membrane with mouth and tongue. NECK: Supple. No nodes. No thyromegaly. LUNGS: Clear. No rales, rhonchi, or fremitus. HEART: Tones regular rate. No S3, S4, jugular venous distention. ABDOMEN: Shows mild tenderness in the upper abdomen and lower abdomen. No distinct localizing tenderness. Bowel sounds quiet. No gross distention. EXTREMITIES: Upper and lower extremities, no angulation deformities. NEUROLOGIC: Cranial nerve 3 through 12 intact. PSYCHIATRIC: Normal. SKIN: Good color. ASSESSMENT: Probably gastroenteritis. If NG output decreases, we will remove the NG tube and feed as necessary. MMODAL /[id number]
== END 2016-10-30 09:21 | disposition home or self-care (01) | DRG 249 ==
LOC: JD.ED 20:36 → JD.MS 23:42
PROVIDERS: ADMIT Internal Medicine; ATTEND Internal Medicine Cardiovascular Disease
PROC: 0D9670Z Drainage of Stomach with Drainage Device, Via Natural or Artificial Opening (ICD-10-PCS; principal; 2016-10-27)
DX: K52.9 Noninfective gastroenteritis and colitis, unspecified (principal); R74.0 Nonspecific elevation of levels of transaminase and lactic acid dehydrogenase [LDH]; R79.89 Other specified abnormal findings of blood chemistry; E78.00 Pure hypercholesterolemia, unspecified; Z79.899 Other long term (current) drug therapy; E03.9 Hypothyroidism, unspecified; Z88.0 Allergy status to penicillin; E78.5 Hyperlipidemia, unspecified
CPT/HCPCS: 36415; 71010; 71010-26; 74177; 74177-26; 80053; 81001; 81025; 82977; 83690; 83735; 85025; 85027; 86140; 86677; 87046; 87086; 87427; 87493; 89055; 96361; 96374; 96375; 96376; 99284; 99285-25; J1170; J1650; J2405; J7040; J7050; Q9963; Q9967

== ENCOUNTER 2017-11-24 19:23 | Emergency (ER) | payer BC ==
[2017-11-24 19:38] VITALS: BP 144/87
[2017-11-24] MEDS ORDERED: Ondansetron 4 MG/2 ML SDV IVPUSH ONE (20:40)
[2017-11-24] MEDS ORDERED: Sodium Chloride 0.9% 1,000 ML IV SCH ×2 (20:45→22:15)
--- NOTE | 2017-11-24 21:19 | EDM.PDOC ---
ED HPI GENERAL MEDICAL PROBLEM - General Chief Complaint: Gastrointestinal Problem Stated Complaint: FEVER/VOMITING/BODY ACHES Time Seen by Provider: 11/24/17 20:08 Source of Information: Reports: Patient, Family History Limitations: Reports: No Limitations - History of Present Illness INITIAL COMMENTS - FREE TEXT/NARRATIVE: This is a 42-year-old female. She has been fighting congestion and a sore throat over the last week and a half and was getting better but then seemed to get worse. She now since Sunday's been having a fever at night time up to 101. She also has been having a marked increased coughing is mostly dry. She also states when she tries to eat anything she ends up having nausea vomiting or diarrhea. She's not been able to keep up with her fluids very well and she has decreased urination. She comes to the ER because she was exposed to a child had strep throat and nausea and vomiting and she is concerned this might be what is going on as well. This same child was also diagnosed with influenza but they don't know if it was influenza A or influenza B. Abdominal Pain Score (Numeric/FACES): 4 - Related Data Allergies Allergy/AdvReac Type Severity Reaction Status Date / Time Penicillins Allergy Seizure Verified 11/24/17 19:36 Home Meds: Home Meds Azithromycin [IJD: Azithromycin] 250 mg PO QAM #6 tab 11/25/17 [Rx] Ondansetron HCl [Zofran] 4 mg PO Q8H PRN #12 tablet 11/25/17 [Rx] Past Medical History - Past Health History Medical/Surgical History: Denies Medical/Surgical History Cardiovascular History: Reports: High Cholesterol - Infectious Disease History Infectious Disease History: Reports: Chicken Pox, Influenza - Past Surgical History GI Surgical History: Reports: Cholecystectomy Female Surgical History: Reports: Tubal Ligation Social & Family History - Family History Cardiac: Reports: [place] Endocrine/Metabolic: Reports: Diabetes, type II - Tobacco Use Smoking Status *Q: Never Smoker Second Hand Smoke Exposure: No - Caffeine Use Caffeine Use: Reports: Soda Other Caffeine Use: 1 soda/day - Alcohol Use Days Per Week of Alcohol Use: 0 - Recreational Drug Use Recreational Drug Use: No - Living Situation & Occupation Occupation: Employed ED ROS GENERAL - Review of Systems Review Of Systems: See Below Constitutional: Reports: Fever, Chills, Malaise, Weakness HEENT: Reports: Other (Respiratory congestion) Respiratory: Reports: Wheezing, Cough. Denies: Shortness of Breath Cardiovascular: Reports: No Symptoms Endocrine: Reports: No Symptoms GI/Abdominal: Reports: Abdominal Pain, Diarrhea, Nausea, Vomiting : Reports: Other (Decreased urination) Musculoskeletal: Reports: Other (Achy all over when she has the fever) Skin: Reports: No Symptoms Neurological: Reports: No Symptoms Psychiatric: Reports: No Symptoms Hematologic/Lymphatic: Reports: No Symptoms ED EXAM, GI/ABD - Physical Exam Exam: See Below Exam Limited By: No Limitations General Appearance: Alert, WD/WN, No Apparent Distress Eyes: Bilateral: Normal Appearance Ears: Normal External Exam, Normal Canal, Normal TMs Nose: Normal Inspection Throat/Mouth: Normal Inspection, Normal Lips, Normal Voice, No Airway Compromise , Other (Mucous membranes are dry and tacky) Head: Normocephalic Neck: Supple Respiratory/Chest: No Respiratory Distress, Lungs Clear, Normal Breath Sounds. No: Respiratory Distress Cardiovascular: Regular Rate, Rhythm, No Murmur GI/Abdominal Exam: Soft, Other (Decreased bowel sounds, generalized soreness all over her abdomen but there is no localized pain there is no organ enlargement noted) Back Exam: Normal Inspection, Full Range of Motion Extremities: Normal Inspection, Normal Range of Motion Neurological: Alert, Oriented Psychiatric: Normal Affect, Normal Mood Skin Exam: Warm, Dry Course - Vital Signs Last Recorded V/S: Last Vital Signs Temp 100.2 F 11/24/17 19:36 Pulse 102 H 11/24/17 19:36 Resp 16 11/24/17 19:36 BP 144/87 H 11/24/17 19:36 Pulse Ox 97 11/24/17 19:36 - Orders/Labs/Meds Orders: Active Orders 24 hr Category Date Time Status Chest 2V [CR] Stat Exams 11/24/17 20:41 Taken CULTURE STREP A CONFIRMATION [] Stat Lab 11/24/17 20:44 Results INFLUENZA A+B AG SCREEN [] Stat Lab 11/24/17 20:44 Ordered Rapid Strep w/culture conf [STREP SCRN A RAPID W CULT Lab 11/24/17 20:44 Ordered CONF] [RM] Stat Sodium Chloride 0.9% [Normal Saline] 1,000 ml Med 11/24/17 20:45 Active IV ASDIRECTED Sodium Chloride 0.9% [Normal Saline] 1,000 ml Med 11/24/17 22:15 Active IV ASDIRECTED Medication Orders Sodium Chloride (Normal Saline) 1,000 mls @ 1,000 mls/hr IV ASDIRECTED SAM Last Admin: 11/24/17 20:53 Dose: 1,000 mls/hr Sodium Chloride (Normal Saline) 1,000 mls @ 1,000 mls/hr IV ASDIRECTED SAM Labs: Laboratory Tests 11/24/17 11/24/17 11/24/17 Range/Units 20:50 20:50 20:50 WBC 9.72 (3.98-10.04) K/mm3 RBC 3.94 L (3.98-5.22) M/mm3 Hgb 11.5 (11.2-15.7) gm/L Hct 34.5 (34.1-44.9) % MCV 87.6 (79.4-94.8) fl MCH 29.2 (25.6-32.2) pg MCHC 33.3 (32.2-35.5) g/dl RDW Std Deviation 38.0 (36.4-46.3) fL Plt Count 313 (182-369) K/mm3 MPV 10.7 (9.4-12.3) fl Neut % (Auto) 77.9 H (34.0-71.1) % Lymph % (Auto) 10.6 L (19.3-51.7) % [place] % (Auto) 9.4 (4.7-12.5) % Eos % (Auto) 1.7 (0.7-5.8) Baso % (Auto) 0.2 (0.1-1.2) % Neut # (Auto) 7.57 H (1.56-6.13) K/mm3 Lymph # (Auto) 1.03 L (1.18-3.74) K/mm3 [place] # (Auto) 0.91 H (0.24-0.36) K/mm3 Eos # (Auto) 0.17 (0.04-0.36) K/mm3 Baso # (Auto) 0.02 (0.01-0.08) K/mm3 Sodium 137 (136-145) mEq/L Potassium 3.5 (3.5-5.1) mEq/L Chloride 102 (98-107) mEq/L Carbon Dioxide 24 (21-32) mEq/L Anion Gap 14.5 (5-15) BUN 8 (7-18) mg/dL Creatinine 0.9 (0.55-1.02) mg/dL Est Cr Clr Drug Dosing 63.75 mL/min Estimated GFR (MDRD) > 60 (>60) mL/min BUN/Creatinine Ratio 8.9 L (14-18) Glucose 113 H (74-106) mg/dL Calcium 9.0 (8.5-10.1) mg/dL Total Bilirubin 0.6 (0.2-1.0) mg/dL AST 52 H (15-37) U/L ALT 128 H (14-59) U/L Alkaline Phosphatase 138 H (46-116) U/L Total Protein 7.5 (6.4-8.2) g/dl Albumin 3.4 (3.4-5.0) g/dl Globulin 4.1 gm/dL Albumin/Globulin Ratio 0.8 L (1-2) Lipase 109 (73-393) U/L Mycoplasma pneumon IgM (NEGATIVE) 11/24/17 Range/Units 20:50 WBC (3.98-10.04) K/mm3 RBC (3.98-5.22) M/mm3 Hgb (11.2-15.7) gm/L Hct (34.1-44.9) % MCV (79.4-94.8) fl MCH (25.6-32.2) pg MCHC (32.2-35.5) g/dl RDW Std Deviation (36.4-46.3) fL Plt Count (182-369) K/mm3 MPV (9.4-12.3) fl Neut % (Auto) (34.0-71.1) % Lymph % (Auto) (19.3-51.7) % [place] % (Auto) (4.7-12.5) % Eos % (Auto) (0.7-5.8) Baso % (Auto) (0.1-1.2) % Neut # (Auto) (1.56-6.13) K/mm3 Lymph # (Auto) (1.18-3.74) K/mm3 [place] # (Auto) (0.24-0.36) K/mm3 Eos # (Auto) (0.04-0.36) K/mm3 Baso # (Auto) (0.01-0.08) K/mm3 Sodium (136-145) mEq/L Potassium (3.5-5.1) mEq/L Chloride (98-107) mEq/L Carbon Dioxide (21-32) mEq/L Anion Gap (5-15) BUN (7-18) mg/dL Creatinine (0.55-1.02) mg/dL Est Cr Clr Drug Dosing mL/min Estimated GFR (MDRD) (>60) mL/min BUN/Creatinine Ratio (14-18) Glucose (74-106) mg/dL Calcium (8.5-10.1) mg/dL Total Bilirubin (0.2-1.0) mg/dL AST (15-37) U/L ALT (14-59) U/L Alkaline Phosphatase (46-116) U/L Total Protein (6.4-8.2) g/dl Albumin (3.4-5.0) g/dl Globulin gm/dL Albumin/Globulin Ratio (1-2) Lipase (73-393) U/L Mycoplasma pneumon IgM Negative (NEGATIVE) Meds: Medications Generic Name Dose Route Start Last Admin Trade Name Freq PRN Reason Stop Dose Admin Sodium Chloride 1,000 mls @ 1,000 mls/hr 11/24/17 20:45 11/24/17 20:53 Normal Saline IV 1,000 mls/hr ASDIRECTED SAM Administration Sodium Chloride 1,000 mls @ 1,000 mls/hr 11/24/17 22:15 Normal Saline IV ASDIRECTED SAM Discontinued Medications Generic Name Dose Route Start Last Admin Trade Name Freq PRN Reason Stop Dose Admin Sodium Chloride 1,000 mls @ 1,000 mls/hr 11/24/17 22:14 11/24/17 22:33 Normal Saline IV 11/24/17 23:13 1,000 mls/hr ONETIME ONE Administration Azithromycin 500 mg/ Sodium 250 mls @ 250 mls/hr 11/24/17 22:18 11/24/17 22: 44 Chloride IV 11/24/17 23:17 Not Given ONETIME ONE Azithromycin 500 mg/ Sodium 250 mls @ 250 mls/hr 11/24/17 22:27 11/24/17 22: 34 Chloride IV 11/24/17 23:26 250 mls/hr ONETIME ONE Administration Ibuprofen 600 mg 11/24/17 22:46 11/24/17 22:50 Motrin PO 11/24/17 22:47 600 mg ONETIME ONE Administration Ondansetron HCl 4 mg 11/24/17 20:40 11/24/17 20:53 Zofran IVPUSH 11/24/17 20:41 4 mg ONETIME ONE Administration - Radiology Interpretation Free Text/Narrative:: Chest x-ray shows a acute infiltrate in the right upper lobe. - Re-Assessments/Exams Free Text/Narrative Re-Assessment/Exam: 11/24/17 23:29 I spoke to the patient regarding the x-ray results that she has pneumonia which certainly explains her prolonged symptoms and her fever. We checked a lipase that was normal since her liver enzymes are slightly elevated and I indicated this could be due to the illness but she would need to follow up with her family doctor to make sure these liver enzymes resolved. I will give her a dose of antibiotics in the ER and continue with some fluid since they seem to help her quite a bit. Once the IV antibiotics are in and the fluids are in I will discharge the patient home. 11/24/17 23:30 I also let the patient know that her strep screen was negative and her influenza screens were negative. The white count was normal and her electrolytes looked good. 11/25/17 00:45 The patient is feeling much better after the second liter of fluids and she wants to go home. I again explained easy to digest foods, lots of fluids with no sodas coffee or tea, lots of rest and sleep. She understands. Departure - Departure Time of Disposition: 00:46 Disposition: Home, Self-Care 01 Condition: Good Clinical Impression: Abdominal cramps, Elevated liver enzymes Right upper lobe pneumonia Qualifiers: Pneumonia type: due to unspecified organism Qualified Code(s): J18.1 - Lobar pneumonia, unspecified organism Nausea and vomiting Qualifiers: Vomiting type: unspecified Vomiting Intractability: non-intractable Qualified Code(s): R11.2 - Nausea with vomiting, unspecified - Discharge Information Prescriptions: Azithromycin [IJD: Azithromycin] 250 mg PO QAM #6 tab Ondansetron HCl [Zofran] 4 mg PO Q8H PRN #12 tablet PRN Reason: Nausea Instructions: Dehydration, Adult, [id number] Referrals: Summer Rai PA-C [Primary Care Provider] - Forms: ED Department Discharge, ED Return to Work/School Form Additional Instructions: At home rest and sleep as much as possible, eat only easy to digest foods such as yogurt crackers and toast, no meats or vegetables until your stomach calms down, drink lots of fluids but no sodas tea or coffee, follow-up with your family doctor this week for recheck to make sure the pneumonia is going away and for recheck of your liver enzymes, start the antibiotics on Sunday morning and have some food in your stomach when you take them, use the Zofran as needed for nausea, return to the ER if your symptoms worsen - My Orders Last 24 Hours: My Active Orders 11/24/17 20:41 Chest 2V [CR] Stat 11/24/17 20:44 CULTURE STREP A CONFIRMATION [RM] Stat INFLUENZA A+B AG SCREEN [] Stat Rapid Strep w/culture conf [STREP SCRN A RAPID W CULT CONF] [RM] Stat 11/24/17 20:45 Sodium Chloride 0.9% [Normal Saline] 1,000 ml IV ASDIRECTED 11/24/17 22:15 Sodium Chloride 0.9% [Normal Saline] 1,000 ml IV ASDIRECTED - Assessment/Plan Last 24 Hours: My Active Orders 11/24/17 20:41 Chest 2V [CR] Stat 11/24/17 20:44 CULTURE STREP A CONFIRMATION [RM] Stat INFLUENZA A+B AG SCREEN [] Stat Rapid Strep w/culture conf [STREP SCRN A RAPID W CULT CONF] [RM] Stat 11/24/17 20:45 Sodium Chloride 0.9% [Normal Saline] 1,000 ml IV ASDIRECTED 11/24/17 22:15 Sodium Chloride 0.9% [Normal Saline] 1,000 ml IV ASDIRECTED
[2017-11-24] MEDS ORDERED: Sodium Chloride 0.9% 1,000 ML IV ONE (22:14)
[2017-11-24] MEDS ORDERED: Azithromycin 500 MG in Sodium Chloride 0.9% 250 ML IV ONE ×2 (22:18→22:27)
[2017-11-24] MEDS ORDERED: Ibuprofen 600 MG Tab PO ONE (22:46)
--- NOTE | 2017-11-26 08:18 | CR ---
Chest: Two views of the chest were obtained. Comparison: Prior chest x-ray of 10/28/16. Heart size and mediastinum are normal. Consolidation is seen within a portion of the anterior right upper lung. Lungs otherwise are clear. Bony structures are unremarkable. Surgical clips are seen within the upper abdomen. Impression: 1. Findings most likely representing pneumonia within the right upper lung. Diagnostic code #3
== END 2017-11-25 01:00 | disposition home or self-care (01) ==
LOC: JD.ED 19:23
DX: J18.9 Pneumonia, unspecified organism (principal); R10.9 Unspecified abdominal pain; R74.8 Abnormal levels of other serum enzymes; R11.2 Nausea with vomiting, unspecified; E78.00 Pure hypercholesterolemia, unspecified; E11.9 Type 2 diabetes mellitus without complications; Z88.0 Allergy status to penicillin; Z79.899 Other long term (current) drug therapy
CPT/HCPCS: 36415; 71046; 80053; 83690; 85025; 86738; 87081; 87430; 87804; 96361; 96365; 96375; 99285; A9270; J0456; J2405; J7040; J7050; 99284

== ENCOUNTER 2020-12-12 08:22 | Emergency (ER) | payer BC ==
[2020-12-12] MEDS ORDERED: Sodium Chloride 0.9% 10 ML Syringe FLUSH PRN (08:43)
[2020-12-12] MEDS ORDERED: Sodium Chloride 0.9% 1,000 ML IV ONE (08:43)
--- NOTE | 2020-12-12 08:49 | EDM.PDOC ---
ED HPI GENERAL MEDICAL PROBLEM - General Chief Complaint: Abdominal Pain Stated Complaint: ABDOMINAL PAIN Time Seen by Provider: 12/12/20 08:24 Source of Information: Reports: Patient History Limitations: Reports: No Limitations - History of Present Illness INITIAL COMMENTS - FREE TEXT/NARRATIVE: Patient presents with abdominal pain. Started Sunday afternoon left lower quadrant pain sharp fairly constant nothing really makes it better or worse she has lost her appetite noted fever yesterday no chills or sweats. Denies any vomiting. She has had diarrhea although she has had that since she has had her gallbladder removed. No bloody stool noted. No burning pain or blood in the urine. Normal menstrual cycle history of and tubal ligation in the past. Denies any changes in her bowel habits otherwise did not sleep well last night second of the pain being about a 7 out of 10. Worse with movement somewhat better at rest runny nose or sore throat does feel little bit lightheaded has not been eating or drinking well. No runny nose no sore throat no coughing cold symptoms chest pain or breathing problems. Lower Pelvic Pain Score (Numeric/FACES): 7 - Related Data Allergies Allergy/AdvReac Type Severity Reaction Status Date / Time Penicillins Allergy Seizure Verified 12/12/20 08:37 Home Meds: Home Meds Lisinopril/Hydrochlorothiazide [Lisinopril-Hctz 20-25 mg Tab] 1 each PO DAILY #30 tablet 02/06/19 [Rx] Ciprofloxacin [Ciprofloxacin HCl] 500 mg PO BID #14 tab 12/12/20 [Rx] metroNIDAZOLE [Flagyl] 500 mg PO Q8H #21 tab 12/12/20 [Rx] Past Medical History - Past Health History Medical/Surgical History: Denies Medical/Surgical History HEENT History: Reports: None Cardiovascular History: Reports: High Cholesterol, Hypertension Respiratory History: Reports: None [employer]SF[employer] OPERATOR History: Reports: None Musculoskeletal History: Reports: None Neurological History: Reports: None Psychiatric History: Reports: None Endocrine/Metabolic History: Reports: Diabetes, Type II, Obesity/BMI 30+ Hematologic History: Reports: None Immunologic History: Reports: None Oncologic (Cancer) History: Reports: None Dermatologic History: Reports: None - Infectious Disease History Infectious Disease History: Reports: Chicken Pox, Influenza - Past Surgical History GI Surgical History: Reports: Cholecystectomy Female Surgical History: Reports: Tubal Ligation Social & Family History - Family History Cardiac: Reports: [place] Endocrine/Metabolic: Reports: Diabetes, type II - Caffeine Use Caffeine Use: Reports: Soda Other Caffeine Use: 1 soda/day - Living Situation & Occupation Occupation: Employed ED ROS GENERAL - Review of Systems Review Of Systems: See Below Constitutional: Reports: Fever. Denies: Chills, Diaphoresis Respiratory: Denies: Shortness of Breath, Cough Cardiovascular: Denies: Chest Pain, Palpitations GI/Abdominal: Reports: Abdominal Pain, Diarrhea, Decreased Appetite, Nausea. Denies: Constipation, Distension, Hematemesis, Hematochezia, Melena, Vomiting : Denies: Discharge, Dysuria, Flank Pain, Frequency, Hematuria, Urgency Musculoskeletal: Denies: Back Pain Neurological: Reports: No Symptoms Psychiatric: Reports: No Symptoms ED EXAM, GI/ABD - Physical Exam Exam: See Below Exam Limited By: No Limitations General Appearance: Alert, WD/WN, Mild Distress Throat/Mouth: Normal Inspection, Normal Oropharynx Head: Atraumatic Neck: Supple Respiratory/Chest: No Respiratory Distress, Lungs Clear, Normal Breath Sounds Cardiovascular: Normal Peripheral Pulses, Regular Rate, Rhythm, No Edema GI/Abdominal Exam: Normal Bowel Sounds, Soft, No Distention, Rebound, Tender, Other (Tenderness in left lower quadrant left midabdomen seems to have some referred and rebound type tenderness. No guarding no rigid abdomen no flank tenderness.). No: Abnormal Bowel Sounds, Hepatomegaly, Splenomegaly Extremities: No Pedal Edema Neurological: Alert, Oriented Psychiatric: Normal Affect Course - Vital Signs Text/Narrative:: Rule out acute abdomen such as acute diverticulitis, appendicitis, bowel obstruction, may be GERIATRIC PHYSICIAN although very unlikely related, torsion, ovarian cyst. May be urinary tract infection and renal colic or other. Last Recorded V/S: Last Vital Signs Temp 97.8 F 12/12/20 08:25 Pulse 110 H 12/12/20 08:25 Resp 16 12/12/20 08:25 BP 136/82 12/12/20 08:25 Pulse Ox 99 12/12/20 08:25 - Orders/Labs/Meds Orders: Active Orders 24 hr Category Date Time Status Peripheral IV Care [RC] . DIRECTED Care 12/12/20 08:43 Active Sodium Chloride 0.9% [Saline Flush] Med 12/12/20 10:15 Active 10 ml FLUSH ASDIRECTED Sodium Chloride 0.9% [Saline Flush] Med 12/12/20 08:43 Active 10 ml FLUSH ASDIRECTED PRN Peripheral IV Insertion Adult [OM.PC] Stat Oth 12/12/20 08:43 Ordered Medication Orders Sodium Chloride (Sodium Chloride 0.9% 10 Ml Syringe) 10 ml FLUSH ASDIRECTED PRN PRN Reason: Keep Vein Open Last Admin: 12/12/20 08:55 Dose: 10 ml Documented by: CHRISTINE Sodium Chloride (Sodium Chloride 0.9% 10 Ml Syringe) 10 ml FLUSH ASDIRECTED SAM Last Admin: 12/12/20 10:33 Dose: 10 ml Documented by: FRANK Labs: Laboratory Tests 12/12/20 12/12/20 12/12/20 Range/Units 08:55 08:55 09:40 WBC 11.74 H (3.98-10.04) K/mm3 RBC 4.37 (3.98-5.22) M/mm3 Hgb 12.9 (11.2-15.7) gm/dl Hct 38.6 (34.1-44.9) % MCV 88.3 (79.4-94.8) fl MCH 29.5 (25.6-32.2) pg MCHC 33.4 (32.2-35.5) g/dl RDW Std Deviation 39.6 (36.4-46.3) fL Plt Count 289 (182-369) K/mm3 MPV 11.2 (9.4-12.3) fl Neut % (Auto) 68.7 (34.0-71.1) % Lymph % (Auto) 21.1 (19.3-51.7) % [place] % (Auto) 8.9 (4.7-12.5) % Eos % (Auto) 0.7 (0.7-5.8) Baso % (Auto) 0.3 (0.1-1.2) % Neut # (Auto) 8.08 H (1.56-6.13) K/mm3 Lymph # (Auto) 2.48 (1.18-3.74) K/mm3 [place] # (Auto) 1.04 H (0.24-0.36) K/mm3 Eos # (Auto) 0.08 (0.04-0.36) K/mm3 Baso # (Auto) 0.03 (0.01-0.08) K/mm3 Manual Slide Review Normal smear Sodium 141 (136-145) mEq/L Potassium 3.7 (3.5-5.1) mEq/L Chloride 103 (98-107) mEq/L Carbon Dioxide 24 (21-32) mEq/L Anion Gap 17.7 H (5-15) BUN 9 (7-18) mg/dL Creatinine 0.8 (0.55-1.02) mg/dL Est Cr Clr Drug Dosing 69.50 mL/min Estimated GFR (MDRD) > 60 (>60) mL/min BUN/Creatinine Ratio 11.3 L (14-18) Glucose 144 H (70-99) mg/dL Calcium 8.5 (8.5-10.1) mg/dL Total Bilirubin 1.8 H (0.2-1.0) mg/dL AST 17 (15-37) U/L ALT 43 (14-59) U/L Alkaline Phosphatase 75 (46-116) U/L C-Reactive Protein 5.6 H* (<1.0) mg/dL Total Protein 7.8 (6.4-8.2) g/dl Albumin 3.7 (3.4-5.0) g/dl Globulin 4.1 gm/dL Albumin/Globulin Ratio 0.9 L (1-2) Lipase 93 (73-393) U/L Urine Color Yellow (Yellow) Urine Appearance Clear (Clear) Urine pH 6.5 (5.0-8.0) Ur Specific [place] 1.020 (1.005-1.030) Urine Protein Negative (Negative) Urine Glucose (UA) Negative (Negative) Urine Ketones Negative (Negative) Urine Occult Blood Negative (Negative) Urine Nitrite Negative (Negative) Urine Bilirubin Negative (Negative) Urine Urobilinogen 0.2 (0.2-1.0) Ur Leukocyte Esterase Negative (Negative) White blood cell count 11,700, hemoglobin 12.9 hematocrit 30.6 platelet count 289,000 differential with 8 neutrophils 1 monocytes sodium 141 potassium 3.7 chloride 103 CO2 is 24 BUN is 9 creatinine 0.8 GFR greater than 60 glucose is 144 total bili 1.8 LFTs otherwise are normal C-reactive protein is 5.6, lipase is normal, urinalysis is negative. Meds: Medications Generic Name Dose Route Start Last Admin Trade Name Freq PRN Reason Stop Dose Admin Sodium Chloride 10 ml 12/12/20 08:43 12/12/20 08:55 Sodium Chloride 0.9% 10 Ml Syringe FLUSH 10 ml ASDIRECTED PRN Administration Keep Vein Open Sodium Chloride 10 ml 12/12/20 10:15 12/12/20 10:33 Sodium Chloride 0.9% 10 Ml Syringe FLUSH 10 ml ASDIRECTED SAM Administration Discontinued Medications Generic Name Dose Route Start Last Admin Trade Name Freq PRN Reason Stop Dose Admin Diatrizoate Meglum/Diatrizoate Sod 120 ml 12/12/20 10:04 12/12/20 10:32 Diatrizoate Meglumine/Diatrizoate Sodium 37% 120 Ml Bottle PO 12/12/20 10:05 60 ml ONETIME ONE Administration Sodium Chloride 1,000 mls @ 999 mls/hr 12/12/20 08:43 12/12/20 08:58 Normal Saline IV 12/12/20 09:43 999 mls/hr ONETIME ONE Administration Iopamidol 50 ml 12/12/20 10:04 12/12/20 10:32 Iopamidol 612 Mg/Ml 50 Ml Sdv IVPUSH 12/12/20 10:05 50 ml ONETIME ONE Administration Iopamidol 100 ml 12/12/20 10:04 12/12/20 10:32 Iopamidol 612 Mg/Ml 100 Ml Bottle IVPUSH 12/12/20 10:05 100 ml ONETIME ONE Administration - Radiology Interpretation Free Text/Narrative:: CT abdomen pelvis with IV and oral contrast reviewed shows a very minimal atelectasis in the right base mild fatty infiltrate of the liver spleen normal adrenal glands within normal limits pancreas normal surgical clips from cholecystectomy abdominal aorta is within normal limits no retroperitoneal adenopathy there is some bowel wall thickening with sigmoid colon surrounding inflammatory changes with minimal diverticuli suspecting some representing mild diverticulitis - Re-Assessments/Exams Free Text/Narrative Re-Assessment/Exam: 12/12/20 11:40 Patient is doing well vital signs are stable white counts noted mild divertic ulitis no complicating factors. We will treat her with Cipro Flagyl fiber in her diet follow-up with primary care and return precautions reviewed. Departure - Departure Time of Disposition: 11:45 Disposition: Home, Self-Care 01 Condition: Fair Clinical Impression: Diverticulitis large intestine Qualifiers: Diverticulitis bleeding: without bleeding Diverticulitis complication: without perforation or abscess Qualified Code(s): K57.32 - Diverticulitis of large intestine without perforation or abscess without bleeding - Discharge Information Instructions: Diverticulitis, [id number] Referrals: Summer Rai PA-C [Primary Care Provider] - Forms: ED Department Discharge Additional Instructions: Follow-up with your primary care provider later this week. Take the antibiotics as directed twice a day for Cipro, 3 times a day for Flagyl, drink plenty water and fluids. Return to the emergency room with any fevers, vomiting, unable to keep down fluids, increasing abdominal pain unable to pass gas or stool per rectum or any worsening symptoms Sepsis Event Note (ED) - Evaluation Sepsis Screening Result: No Definite Risk - Focused Exam Vital Signs: Vital Signs Temp Pulse Resp BP Pulse Ox 12/12/20 08:25 97.8 F 110 H 16 136/82 99 - My Orders Last 24 Hours: My Active Orders 12/12/20 08:43 Peripheral IV Care [RC] . DIRECTED Sodium Chloride 0.9% [Saline Flush] 10 ml FLUSH ASDIRECTED PRN Peripheral IV Insertion Adult [OM.PC] Stat 12/12/20 10:15 Sodium Chloride 0.9% [Saline Flush] 10 ml FLUSH ASDIRECTED - Assessment/Plan Last 24 Hours: My Active Orders 12/12/20 08:43 Peripheral IV Care [RC] . DIRECTED Sodium Chloride 0.9% [Saline Flush] 10 ml FLUSH ASDIRECTED PRN Peripheral IV Insertion Adult [OM.PC] Stat 12/12/20 10:15 Sodium Chloride 0.9% [Saline Flush] 10 ml FLUSH ASDIRECTED
[2020-12-12] MEDS ORDERED: Iopamidol 612 MG/ML 50 ML SDV IVPUSH ONE (10:04)
[2020-12-12] MEDS ORDERED: Diatrizoate Meglumine/Diatrizoate Sodium 37% 120 ML Bottle PO ONE (10:04)
[2020-12-12] MEDS ORDERED: Iopamidol 612 MG/ML 100 ML Bottle IVPUSH ONE (10:04)
[2020-12-12] MEDS ORDERED: Sodium Chloride 0.9% 10 ML Syringe FLUSH SCH (10:15)
--- NOTE | 2020-12-12 10:52 | CT ---
CT abdomen and pelvis Technique: Multiple axial sections were obtained from above the dome of the diaphragm inferiorly through the pubic symphysis. Intravenous and oral contrast has been given. Delayed images were also obtained through the bladder. Reconstructed coronal and sagittal images were obtained. Comparison: Prior CT abdomen and pelvis exam of 10/27/16. Findings: Very minimal atelectasis is seen within the right lung base. Liver shows mild fatty infiltration without focal abnormality. Spleen size is normal. Minimal amount of accessory splenic tissue is noted medial to the spleen. Adrenal glands show no nodule. Pancreas is within normal limits. Surgical clips are noted from prior cholecystectomy. Minimal low density lesion is noted within the cortex of the left kidney compatible with minimal cyst. Kidneys are otherwise unremarkable. Abdominal aorta shows no aneurysm. No retroperitoneal adenopathy or mesenteric abnormalities are seen. Delayed images show contrast within the ureters and within the bladder. There is bowel wall thickening within the sigmoid colon with surrounding inflammatory change. Minimal diverticuli are seen and findings most likely represent mild diverticulitis. No additional inflammatory change is appreciated. Appendix is seen and appears to be within normal limits. Bone window settings were reviewed which appear within normal limits for the patient's age. Impression: 1. Findings within the sigmoid colon most likely representing mild diverticulitis. 2. Very minimal cyst within the left kidney. 3. Previous cholecystectomy and mild fatty infiltration of the liver. Diagnostic code #3
[2020-12-12 12:14] VITALS: BP 140/89; PULSE 100
== END 2020-12-12 12:10 | disposition home or self-care (01) ==
LOC: JD.ED 08:22
DX: K57.32 Diverticulitis of large intestine without perforation or abscess without bleeding (principal); I10 Essential (primary) hypertension; E11.9 Type 2 diabetes mellitus without complications; E66.9 Obesity, unspecified; Z68.38 Body mass index [BMI] 38.0-38.9, adult; Z79.899 Other long term (current) drug therapy; Z88.0 Allergy status to penicillin
CPT/HCPCS: 36415; 74177; 80053; 81003; 83690; 85025; 86140; 99284; J7030; Q9963; Q9967

== ENCOUNTER 2023-10-11 10:18 | Emergency (ER) | payer BC, OTHER ==
[2023-10-11 10:30] VITALS: PULSE 72
[2023-10-11] MEDS: Sodium Chloride 0.9% 10 ML Syringe FLUSH PRN (10:36)
[2023-10-11 11:02] LABS: BASOPHILS ABSOLUTE AUTO 0.1 K/mm3 (0.0-0.2); BASOPHILS PERCENT AUTO 0.8 % (0.0-1.0); EOSINOPHILS ABSOLUTE AUTO 0.1 K/mm3 (0.0-0.4); EOSINOPHILS PERCENT AUTO 1.6 % (0.0-6.0); HEMATOCRIT 37.6 % (37.0-47.0); HEMOGLOBIN 12.6 gm/dl (12.0-16.0); IMMATURE GRAN ABSOLUTE AUTO 0.02 K/mm3 (0.00-0.05); IMMATURE GRAN PERCENT AUTO 0.3 % (0.0-0.4); LYMPHOCYTES ABSOLUTE AUTO 2.3 K/mm3 (1.0-4.8); MEAN CORPUSCULAR HEMOGLOBIN 29.9 pg (28.0-32.0); MEAN CORPUSCULAR HGB CONC 33.5 g/dl (32.0-36.0); MEAN CORPUSCULAR VOLUME 89.1 fl (83.0-99.0); MEAN PLATELET VOLUME 11.1 fl (9.4-12.3); MONOCYTES ABSOLUTE AUTO 0.5 K/mm3 (0.0-0.8); MONOCYTES PERCENT AUTO 7.3 % (0.0-8.0); NEUTROPHILS ABSOLUTE AUTO 3.4 K/mm3 (1.8-7.7); PLATELET COUNT,PLT 307 K/mm3 (150-400); RED BLOOD CELL COUNT 4.22 M/mm3 (4.10-5.30); WHITE BLOOD CELL COUNT,WBC 6.34 K/mm3 (3.9-11.3)
[2023-10-11 11:17] LABS: A/G RATIO 1.1 (1-2); ALBUMIN 4.1 g/dl (3.4-5.0); ANION GAP 12.4 (5-15); BILIRUBIN TOTAL 1.2 mg/dL (0.2-1.0); BUN/CREATININE RATIO 15.6 (14-18); CALCIUM 9.7 mg/dL (8.5-10.1); CREATININE 0.9 mg/dL (0.55-1.02); EST CRCL DRUG DOSING (CG) 59.8 mL/min; POTASSIUM,K 3.4 mEq/L (3.5-5.1); PROTEIN TOTAL,TP 7.9 g/dl (6.4-8.2)
[2023-10-11] MEDS: Alum Hydrox/Mag Hydrox/Simeth 30 ML, Lidocaine 2% 15 ML PO ONE (11:23)
[2023-10-11 11:37] LABS: APPEARANCE,URINE CLEAR (Clear); BILIRUBIN,URINE NEGATIVE (Negative); COLOR,URINE YELLOW (Yellow); GLUCOSE,URINE NEGATIVE (Negative); KETONES,URINE NEGATIVE (Negative); LEUKOCYTE ESTERASE,URINE NEGATIVE (Negative); NITRITE,URINE NEGATIVE (Negative); OCCULT BLOOD,URINE NEGATIVE (Negative); PH,URINE 7.5 (5.0-8.0); PROTEIN,URINE NEGATIVE (Negative); UROBILINOGEN,URINE 0.2 (0.2-1.0)
[2023-10-11 13:10] VITALS: BP 125/80
== END 2023-10-11 12:25 | disposition home or self-care (01) ==
LOC: JD.ED 10:18
DX: R07.2 Precordial pain (principal); E11.9 Type 2 diabetes mellitus without complications; E66.9 Obesity, unspecified; I10 Essential (primary) hypertension; Z88.0 Allergy status to penicillin
CPT/HCPCS: 36415; 71045; 80053; 81003; 84484; 85025; 85379; 93005; 99285; A9270; J3490; 93010; 99284

== ENCOUNTER 2024-02-07 06:48 | Day surgery (SDC) | payer OTHER ==
[~2024-02-07 06:48] MED LIST: Lactated Ringers 1,000 ML IV SCH; Sodium Chloride 0.9% 10 ML Syringe FLUSH PRN; Sodium Chloride 0.9% 10 ML Syringe FLUSH SCH
[2024-02-07] MEDS: Lactated Ringers 1,000 ML IV SCH (07:30)
[2024-02-07] MEDS ORDERED: Propofol 200 MG/20 ML SDV ONE (07:35)
[2024-02-07] MEDS ORDERED: Lidocaine 1% 4 ML ONE (07:35)
[2024-02-07 09:09] VITALS: BP 120/84; PULSE 79
== END 2024-02-07 09:12 | disposition home or self-care (01) ==
LOC: JD.SDS 06:48
PROVIDERS: ATTEND Surgery
DX: Z12.11 Encounter for screening for malignant neoplasm of colon (principal); D12.2 Benign neoplasm of ascending colon; D12.5 Benign neoplasm of sigmoid colon; Z86.010 Personal history of colon polyps; K57.30 Diverticulosis of large intestine without perforation or abscess without bleeding; K64.0 First degree hemorrhoids; I10 Essential (primary) hypertension; E78.00 Pure hypercholesterolemia, unspecified; E11.40 Type 2 diabetes mellitus with diabetic neuropathy, unspecified; F41.9 Anxiety disorder, unspecified; Z79.82 Long term (current) use of aspirin; Z79.899 Other long term (current) drug therapy
CPT/HCPCS: 45384; J2704; J7120; 00811; J3490

== ENCOUNTER 2025-01-15 09:57 | Emergency (ER) | payer OTHER ==
[2025-01-15 10:43] LABS: BASOPHILS PERCENT AUTO 0.6 % (0.0-1.0); EOSINOPHILS ABSOLUTE AUTO 0.1 K/mm3 (0.0-0.4); EOSINOPHILS PERCENT AUTO 2.6 % (0.0-6.0); HEMATOCRIT 36.8 % (37.0-47.0); IMMATURE GRAN ABSOLUTE AUTO 0.01 K/mm3 (0.00-0.05); IMMATURE GRAN PERCENT AUTO 0.2 % (0.0-0.4); LYMPHOCYTES ABSOLUTE AUTO 1.5 K/mm3 (1.0-4.8); LYMPHOCYTES PERCENT AUTO 31.3 % (24.0-44.0); MEAN CORPUSCULAR HEMOGLOBIN 28.4 pg (28.0-32.0); MEAN CORPUSCULAR HGB CONC 32.6 g/dl (32.0-36.0); MONOCYTES ABSOLUTE AUTO 0.5 K/mm3 (0.0-0.8); MONOCYTES PERCENT AUTO 10.2 % (0.0-8.0); NEUTROPHILS ABSOLUTE AUTO 2.6 K/mm3 (1.8-7.7); NEUTROPHILS PERCENT AUTO 55.1 % (41.0-71.0); PLATELET COUNT,PLT 280 K/mm3 (150-400); RED BLOOD CELL COUNT 4.23 M/mm3 (4.10-5.30); WHITE BLOOD CELL COUNT,WBC 4.63 K/mm3 (3.9-11.3)
[2025-01-15 11:11] LABS: INR 0.97; PROTHROMBIN TIME 10.3 SECONDS (9.7-12.0)
[2025-01-15 11:14] LABS: A/G RATIO 1.1 (1-2); ALBUMIN 3.9 g/dl (3.4-5.0); BILIRUBIN TOTAL 1.2 mg/dL (0.2-1.0); BUN/CREATININE RATIO 15.7 (14-18); CALCIUM 9.2 mg/dL (8.5-10.1); CREATININE 0.7 mg/dL (0.55-1.02); EST CRCL DRUG DOSING (CG) 76.04 mL/min; MAGNESIUM 1.8 mg/dL (1.8-2.4); PROTEIN TOTAL,TP 7.6 g/dl (6.4-8.2)
[2025-01-15 13:59] LABS: BARBITURATE SCREEN,URINE NEGATIVE (CUTOFF=200); BENZODIAZEPINES SCREEN,URINE NEGATIVE (CUTOFF=150); BUPRENORPHINE SCREEN,URINE NEGATIVE (CUTOFF=10); METHADONE SCREEN, URINE NEGATIVE (CUTOFF=200); METHAMPHETAMINES SCREEN, URINE NEGATIVE (CUTOFF=500); OXYCODONE SCREEN,URINE NEGATIVE (CUT0FF=100); THC SCREEN,URINE 20 NG/ML NEGATIVE (CUTOFF=50)
[2025-01-15 14:00] LABS: AMPHETAMINES SCREEN, URINE NEGATIVE (CUTOFF=500)
[2025-01-15 14:03] VITALS: BP 165/87; PULSE 65
== END 2025-01-15 14:03 | disposition home or self-care (01) ==
LOC: JD.ED 09:57
DX: N93.8 Other specified abnormal uterine and vaginal bleeding (principal); E78.00 Pure hypercholesterolemia, unspecified; I10 Essential (primary) hypertension; E11.9 Type 2 diabetes mellitus without complications; Z90.49 Acquired absence of other specified parts of digestive tract; Z88.0 Allergy status to penicillin; Z88.8 Allergy status to other drugs, medicaments and biological substances; Z79.82 Long term (current) use of aspirin; Z79.899 Other long term (current) drug therapy; Z79.85 Long-term (current) use of injectable non-insulin antidiabetic drugs
CPT/HCPCS: 36415; 76857; 76857-26; 80053; 80306; 81025; 82550; 83735; 85025; 85610; 99284